=== PATIENT | female | born 1955 | race Caucasian/White ===

== ENCOUNTER → 2017-01-17 | Outpatient (CLI) | payer BC, OTHER ==
[~2017-01-17] VITALS: Ht 160 cm; Wt 91.2 kg
[~2017-01-17] MED LIST: ACHYD1T PO; ALLO300T2 PO; AMLO10TA2 PO; APIX5TAB PO; ASPI-586 PO; ATOR40TA70 PO; CALC-676 PO; CALC-823 PO; CATHETER FLUSH 10 ML SYR IV PRN; EZET10TA5 PO; FISH1CAP15 PC; HYDR-3874 PO; LISI1TAB6 PO; METO100T12 PO; MTP50T PO; MULT-10 PO; NIAC100045 PO; NITR-65 PO; NITR100C3 PO; POTA15TA PO; ROSU10TA PO; TAMS0.4C2 PO; TAMS0.4C98 PO; UBID100C17 PO; VIT-8 PO; VIT1CAPS5 PO; [UNRECOGNIZED DRUG - CODE] PO
[2017-01-17 09:02] VITALS: BP 114/77
[2017-01-17 09:08] VITALS: BP 161/90
[2017-01-17 09:11] VITALS: BP 174/82
[2017-01-17 09:15] VITALS: BP 160/101
--- NOTE | 2017-01-17 22:25 | STRESS TEST ---
DATE OF SERVICE: 01/17/2017 EXERCISE MYOVIEW STRESS TEST REPORT Baseline heart rate is 87. Baseline blood pressure 135/56. Baseline EKG is sinus rhythm with no ischemic changes. SUMMARY: The patient was injected with 10.80 mCi of technetium-99 Myoview and the resting images were obtained. Then, the patient started exercising with the baseline heart rate, blood pressure and EKG mentioned above. PVCs were noted during exercise, short runs of paroxysmal atrial tachycardia. The patient was able to exercise for a total of 5 minutes and 30 seconds on standard Lacho protocol, achieving a peak exercise level with the heart rate of 146, which is 92% of maximum expected heart rate. With peak exercise level, EKG was showing nondiagnostic changes. During recovery, heart rate and blood pressure returned to baseline. The resting and stress images were reviewed and compared in the short axis, horizontal long axis and vertical long axis views. Review of the images showed breast attenuation with decreased uptake at the mid to apical anterior wall and anterolateral wall with mild reversibility. SSS is 5. SDS 3. TID value 1.07. On the gated images, the left ventricle appeared to be normal size with normal contractility. Calculated ejection fraction 78%. CONCLUSION: 1. Good exercise tolerance, a total of 5 minutes and 30 seconds on standard Lacho protocol, total of 7.1 METS achieving 92% of maximum expected heart rate. 2. Appropriate blood pressure response to exercise returned to baseline during recovery. 3. Occasional premature ventricular contractions and paroxysmal atrial tachycardia noted at peak exercise level, resolved during recovery. 4. Nondiagnostic EKG changes with exercise returned to baseline during recovery. 5. Breast attenuation with questionable mild ischemia involving the mid to apical anterior wall, anterolateral wall and inferolateral wall. 6. Normal left ventricular size with normal contractility. Calculated ejection fraction 78%. Job ID: [id number] DocumentID: [id number] Dictated Date: 01/17/2017 15:58:36 Show Operations Supervisor Date: 01/17/2017 19:11:37 Dictated By: BLANCA CARBAJAL MD
== END ==
LOC: CARD 06:52
PROVIDERS: ATTEND Internal Medicine Cardiovascular Disease
DX: I25.10 Atherosclerotic heart disease of native coronary artery without angina pectoris (principal); I48.91 Unspecified atrial fibrillation; I10 Essential (primary) hypertension
CPT/HCPCS: 78452; 93017

== ENCOUNTER 2017-01-24 06:38 | Day surgery (SDC) | payer BC, OTHER ==
[~2017-01-24] VITALS: Ht 162.6 cm; Wt 91.6 kg
[2017-01-24] VITALS (11 sets, daily range): BP systolic 132–167; BP diastolic 56–96
[~2017-01-24 06:38] MED LIST changes: -CATHETER FLUSH 10 ML SYR IV PRN
[2017-01-24] MEDS ORDERED: NS IV 1000 ML 1,000 ML ONE (07:13)
[2017-01-24] MEDS ORDERED: HEParin (CATH LAB) 2,000 ML IV ONE (07:13)
[2017-01-24] MEDS ORDERED: LIDOCAINE 1% INJ 50 ML (XYLOCAINE) VIAL ONE (07:13)
[2017-01-24] MEDS ORDERED: NS IV 1000 ML 1,000 ML IV SCH ×2 (07:30→09:21)
[2017-01-24 07:38] LABS: RED BLOOD COUNT 4.92 10^6/uL (4.35-5.85); RED CELL DISTRIBUTION WIDTH 14.4 % (10.0-14.5); WHITE BLOOD COUNT 5.1 10^3/uL (4.3-11.0)
[2017-01-24 07:39] LABS: BILIRUBIN,URINE NEGATIVE (NEGATIVE); KETONES,URINE NEGATIVE (NEGATIVE); LEUKOCYTE ESTERASE ,URINE 1+ (NEGATIVE); NITRITE,URINE NEGATIVE (NEGATIVE); PH,URINE 6 (5-9); PROTEIN,URINE NEGATIVE (NEGATIVE); UROBILINOGEN,URINE NORMAL (NORMAL)
[2017-01-24] MEDS ORDERED: ASPI325T32 PO (07:41)
[2017-01-24 07:52] LABS: PROTHROMBIN TIME PATIENT 13.4 SEC (12.2-14.7)
[2017-01-24 07:55] LABS: ALANINE AMINOTRANSFERASE 32 U/L (0-55); ALBUMIN 4.3 GM/DL (3.2-4.5); ANION GAP 11 MMOL/L (5-14); ASPARTATE AMINO TRANSFERASE 25 U/L (5-34); BILIRUBIN,TOTAL 0.5 MG/DL (0.1-1.0); BLOOD UREA NITROGEN 21 MG/DL (7-18); BUN/CREATININE RATIO 24; CALCIUM 9.9 MG/DL (8.5-10.1); CARBON DIOXIDE 27 MMOL/L (21-32); CHLORIDE 102 MMOL/L (98-107); CHOLESTEROL 145 MG/DL (< 200); CREATININE SERUM 0.86 MG/DL (0.60-1.30); DIRECT LDL 74 MG/DL (1-129); GFR ESTIMATED > 60; GLUCOSE 95 MG/DL (70-105); POTASSIUM 3.9 MMOL/L (3.6-5.0); SODIUM 140 MMOL/L (135-145); TOTAL PROTEIN 7.7 GM/DL (6.4-8.2); TRIGLYCERIDES 108 MG/DL (<150); VLDL CHOLESTEROL 22 MG/DL (5-40)
--- NOTE | 2017-01-24 08:04 | Diagnostic Imaging Report ---
EXAMINATION: Portable upright radiograph of the chest. INDICATION: Abnormal stress test. Hypertension. FINDINGS: The lungs are hyperinflated with minimal left basilar atelectasis or scarring. The heart size is mildly enlarged. No effusion or pneumothorax. The mediastinum and [place] appear unremarkable. Sternotomy wires and post CABG changes are seen. IMPRESSION: Cardiomegaly. Minimal left basilar atelectasis or scarring. Dictated by: Dictated on workstation # [id number]
--- NOTE | 2017-01-24 08:14 | Cardiac Procedure Note-CS/ASA ---
Pre-Procedure Note Pre-Op Procedure Note H&P Reviewed The H&P was reviewed, patient examined and no changes noted. Date H&P Reviewed: Jan 24, 2017 Time H&P Reviewed: 08:14 Conscious Sedation Pre-Proced Time Reviewed: 08:14 ASA Class: 3 Airway Mallampati Classification: (lower [place] appropriate class) I. II. III, IV Lungs Heart ASA score ASA 1: a normal healthy patient ASA 2: a patient with a mild systemic disease (mid diabetes, controlled hypertension, obesity x ASA 3: a patient with a severe systemic disease that limits activity (angina , COPD, prior Myocardial infarction) ASA 4: a patient with an incapacitating disease that is a constant threat to life (CHF, renal failure) ASA 5: a moribund patient not expected to survive 24 hrs. (ruptured aneurysm) ASA 6: a declared brain patient whose organs are being harvested. For emergent operations, add the letter E after the classification Grade 3 Sedation Plan: Analgesia, Amnesia, Plan communicated to team members, Discussed options with patient/fam, Discussed risks with patient/fam Note The patient is an appropriate candidate to undergo the planned procedure, sedation, and anesthesia. The patient immediately re-assessed prior to indication. BLANCA CARBAJAL MD Jan 24, 2017 08:14
[2017-01-24] MEDS ORDERED: fentaNYL INJECTION 100 MCG/2 ML AMP ONE (08:32)
[2017-01-24] MEDS ORDERED: MIDAZOLAM 2 MG/2 ML (VERSED) VIAL ONE (08:32)
--- NOTE | 2017-01-24 09:20 | Cardiac Cath Report ---
Cardiac Cath Report Physician (s)/Mirror Maker (s) Physician BLANCA CARBAJAL MD Pre-Procedure Diagnosis Pre-Procedure Diagnosis: Coronary artery disease Post-Procedure Note Procedure Start Date: Jan 24, 2017 Name of Procedure: Left heart catheterization, vein graft angiogram, left ventricular pressure, [id number] Aortic arch angiogram [id number] Findings/Procedure Note PROCEDURE NOTE: After explaining the procedure to the patient, all pros and cons were explained, all questions were answered. The patient signed the consent and then she was placed on the cardiac catheterization laboratory. The patient was placed on the cardiac catheterization laboratory. Groin was prepped SL fashion local anesthesia was used. Sheath placed in the right femoral artery. Jeannie right and left catheter were used to access the coronary system, I used a JL 3.5 Taxus the left coronary system Vein Graft evaluated. Pigtail was used to to evaluate the aortic arch Left ventriculogram was not done, pressure was measured with crossing with the JR4 catheter Aortic arch angiogram was done At the end of the procedure the sheath was removed. Closure device was used FINDINGS: Hemodynamics LV 126/12 and diastolic pressure of 12 Aorta 120/52 mean of 76 ANATOMY: Left Main has severe ostial stenosis with severe disease distally Left Anterior Descending has severe disease, vein graft to the LAD is patent, there is 40-50 percent stenosis at the ostial vein graft nonobstructive disease , small vessel disease distally Left Circumflex has severe disease, vein graft to the obtuse marginal branch is patent with small vessel disease distally Right Coronory Artery is free of obstructive disease Vein Graft evaluation showed 2 vein grafts, vein graft to the LAD has 40-50 percent stenosis at its ostium, small vessel disease at the distal LAD, the second vein graft is to the circumflex artery/obtuse marginal branch which is patent with good flow distally LV Gram was not done, pressure was measured Aorta evaluation done with aortic arch angiogram showed normal aortic arch, no dissection or aneurysm, origin of the great neck vessels showed some tortuosity and calcification, no obstructive disease CONCLUSION: 1. Patent vein graft to the LAD with 40-50 percent stenosis at its ostium, small vessel disease at the distal LAD 2. Patent vein graft to the circumflex artery was small vessel disease at the distal circumflex artery 3. Mild disease in the right coronary artery 4. Normal aortic arch and great neck vessels, no dissection or aneurysm 5. Severe disease at the ostial left main corrected by the 2 bypasses DISCUSSION AND RECOMMENDATION: Continue to maximize medical therapy. No intervention is recommended Anesthesia Type: Conscious Sedation Estimated blood loss (mL): 15 ml Contrast Amount: 75 ml Total Radiation Dose: 398 mGy Post-Procedure Diagnosis Post-operative diagnosis: Chest pain nonspecific etiology Coronary artery disease Hypertension Hyperlipidemia BLANCA CARBAJAL MD Jan 24, 2017 09:20
--- NOTE | 2017-01-24 09:23 | Discharge Inst-Post CATH ---
Discharge Inst-CATH Post Cardiac Cath D/C Inst Follow Up/Plan Appointment with Dr. Villalobos's office in 2-4 weeks CARDIAC CATH DISCHARGE INSTRUCTIONS *Hold Metformin for 48 hours post heart cath. ACTIVITY * Go Home directly and rest. * Limit activity of the leg (or wrist if it was used) for 7 days including aerobics, swimming, jogging, bicycling, etc. * Restrict stair-climbing for 7 days if possible, if not, climb up with your non -cath leg, then bring together on the same step. * Avoid lifting, pushing, pulling or excessive movement of the affected extremity for 7 days. * Customary sexual activity may be resumed after 2 days-use caution not to use a position that strains or causes pain to the affected extremity. * No driving for 24 hours. * NO SMOKING. * Avoid straining for bowel movements for 7 days. * Gentle walking on level ground is allowed. * Returning to work will depend on the type of procedure and the results. Your doctor will discuss this with you. CALL YOUR DOCTOR FOR ANY OF THE FOLLOWING: *If bleeding from the puncture site occurs- Apply gentle pressure to site with clean cloth and call your doctor or EMS. * If a knot or lump forms under the skin, increases in size, or causes pain. * If bruising appears to be worsening or moving further down your leg instead of disappearing. * Temperature above 101 F. CARE OF YOUR GROIN INCISION; * Bruising or purple discoloration of the skin near the puncture site is common. * You may shower only, no bathtub bathing for 5 days. Be careful to avoid slipping as your leg may feel stiff. * If a closure device was used on your femoral artery, please see the attached guide regarding care of the device and your leg. * REMOVE the dressing from your groin the next day after your procedure in the shower. CARE OF YOUR WRIST INCISION; * Bruising or purple discoloration of the skin near the puncture site is common. * You may shower. * DO NOT submerge wrist. * Remove dressing in 24 hours. BLANCA VILLALOBOS MD Jan 24, 2017 09:22
[2017-01-24] MEDS ORDERED: PATIENT MAY USE OWN MEDS, ALL PO SCH (09:30)
== END 2017-01-24 14:13 | disposition home or self-care (01) ==
LOC: CATH 06:38 → SURG 09:31 → CATH 14:13
PROVIDERS: ATTEND Internal Medicine Cardiovascular Disease
DX: R07.89 Other chest pain (principal); I25.10 Atherosclerotic heart disease of native coronary artery without angina pectoris; I10 Essential (primary) hypertension; E78.2 Mixed hyperlipidemia; I48.0 Paroxysmal atrial fibrillation; I65.23 Occlusion and stenosis of bilateral carotid arteries; E66.9 Obesity, unspecified; Z68.34 Body mass index [BMI] 34.0-34.9, adult; Z82.49 Family history of ischemic heart disease and other diseases of the circulatory system; Z95.1 Presence of aortocoronary bypass graft; Z79.82 Long term (current) use of aspirin; Z79.899 Other long term (current) drug therapy; Z87.891 Personal history of nicotine dependence
CPT/HCPCS: 36221; 36415; 71010; 80053; 80061; 81000; 85027; 85610; 85730; 87081; 93459

== ENCOUNTER 2019-10-21 19:46 | Outpatient (CLI) | payer MEDICARE, OTHER ==
[~2019-10-21 19:46] MED LIST changes: -AMLO10TA2 PO; +AMLO10TA7 PO; +ASPI325T32 PO; +HYDR-3870 PO; -HYDR-3874 PO; +LISI1TAB29 PO; -ROSU10TA PO; +ROSU10TA22 PO; -TAMS0.4C98 PO; +TMSL.4C PO
== END 2019-10-22 07:00 | disposition home or self-care (01) ==
LOC: SLEEP 19:46
PROVIDERS: ATTEND Nurse Practitioner
DX: G47.33 Obstructive sleep apnea (adult) (pediatric) (principal); R09.02 Hypoxemia
CPT/HCPCS: 95811

== ENCOUNTER 2021-03-11 06:32 | Outpatient (CLI) | payer MEDICARE, OTHER ==
[~2021-03-11] VITALS: Ht 165.3 cm; Wt 90.0 kg
[~2021-03-11 06:32] MED LIST changes: +AMLO-251 PO; -AMLO10TA7 PO; -LISI1TAB29 PO; +LISI1TAB44 PO
== END 2021-03-11 16:56 | disposition home or self-care (01) ==
LOC: PREOP 06:32
PROVIDERS: ATTEND Specialist
DX: Z01.818 Encounter for other preprocedural examination (principal)

== ENCOUNTER 2021-03-14 09:49 | Day surgery (SDC) | payer MEDICARE, OTHER ==
[~2021-03-14] VITALS: Ht 165.3 cm; Wt 90.0 kg
[2021-03-14 10:19] VITALS: BP 131/60
[2021-03-14] MEDS: TETRACAINE 0.5% OPHTH SOLN 4 ML BTL (SINGLE DOSE ONLY) OU PRN ×4 (10:29→10:46)
[2021-03-14] MEDS ORDERED: MOXIFLOXACIN OPHTH SOLN 5 MG/ML 0.3 ML SYRINGE OP ONE (10:30)
[2021-03-14] MEDS ORDERED: POVIDONE (BETADINE) OPHTH SOLN 5% 30 ML OP ONE (10:30)
[2021-03-14] MEDS ORDERED: LIDOCAINE PF 1% 2 ML VIAL IR PRN (10:30)
[2021-03-14] MEDS ORDERED: TIMOLOL MALEATE 0.5% 5 ML (TIMOPTIC) BTL OU PRN (10:30)
[2021-03-14] MEDS: PHENYLEPHRINE 10% OPHTH (NEO-SYN) 5 ML BTL OU SCH ×3 (10:35→10:46)
[2021-03-14] MEDS: TROPICAMIDE 1% OPH SOLN (MYDRIACYL) 15 ML BTL OP SCH ×3 (10:35→10:46)
[2021-03-14] MEDS ORDERED: MIDAZOLAM 2 MG/2 ML (VERSED) VIAL ONE (11:06)
--- NOTE | 2021-03-14 11:14 | Ophthalmologist Pre-Op Note ---
Pre-Operative Progress Note H&P Reviewed The H&P was reviewed, patient examined and no changes noted. Date H&P Reviewed: Mar 14, 2021 Time H&P Reviewed: 11:14 Pre-Op Dx Cataract, Left Eye OMAIRA REID MD Mar 14, 2021 11:14
[2021-03-14] MEDS ORDERED: acetaZOLAMIDE ER 500 MG CAP (DIAMOX SEQUELS) PO ONE (11:30)
--- NOTE | 2021-03-14 11:35 | Ophthalmology Operative Report ---
Cataract removal/placement IOL PREOPERATIVE DIAGNOSIS: Cataract Left Eye POSTOPERATIVE DIAGNOSIS: Cataract Left Eye PROCEDURE: Cataract removal and placement of posterior chamber implant, left eye SURGEON: Thiago Reid ANESTHESIA: Topical with sedation COMPLICATIONS: None ESTIMATED BLOOD LOSS: Minimal DESCRIPTION OF PROCEDURE: After proper informed consent was obtained, the patient, a 65 female, was taken to the Operating Room and the left eye was anesthetized with tetracaine. The left eye was then prepped and draped in the usual manner. A wire lid speculum was placed. A paracentesis was made at the left hand position. Preservative free lidocaine was injected into the anterior chamber followed by viscoelastic. A clear corneal incision was made in the temporal position. A capsulorrhexis was preformed and the central nuclear and cortical material were removed. The posterior capsule was polished and an King 20.0 AU00T0 was placed into the capsular bag. The residual viscoelastic was aspirated and balanced saline solution was injected into the anterior chamber. Moxifloxacin was injected into the anterior chamber. The wound was checked and found to be water tight. The patient tolerated the procedure well without complications. THIAGO REID MD Mar 14, 2021 11:35
[2021-03-14 11:38] VITALS: BP 134/72
--- NOTE | 2021-03-14 13:03 | Anesthesia-General Post-Op ---
MAC Patient Condition Mental Status/LOC: Same as Preop Cardiovascular: Satisfactory Nausea/Vomiting: Absent Respiratory: Satisfactory Pain: Controlled Complications: Absent Post Op Complications Complications None Follow Up Care/Instructions Patient Instructions None needed. Anesthesiology Discharge Order Discharge Order Patient was doing well after the procedure, no complaints, stable vital signs, no apparent adverse anesthesia problems. TAMARA HART DO Mar 14, 2021 13:03
== END 2021-03-14 11:40 | disposition home or self-care (01) ==
LOC: SDC 09:49
PROVIDERS: ATTEND Specialist
DX: H25.12 Age-related nuclear cataract, left eye (principal); I25.119 Atherosclerotic heart disease of native coronary artery with unspecified angina pectoris; I11.9 Hypertensive heart disease without heart failure; E78.5 Hyperlipidemia, unspecified; E78.00 Pure hypercholesterolemia, unspecified; M19.90 Unspecified osteoarthritis, unspecified site; K21.9 Gastro-esophageal reflux disease without esophagitis; Z79.82 Long term (current) use of aspirin; Z79.899 Other long term (current) drug therapy; Z87.891 Personal history of nicotine dependence; Z95.1 Presence of aortocoronary bypass graft; Z90.710 Acquired absence of both cervix and uterus; Z82.49 Family history of ischemic heart disease and other diseases of the circulatory system; Z82.3 Family history of stroke
CPT/HCPCS: 66984; V2632

== ENCOUNTER 2021-03-18 10:05 | Day surgery (SDC) | payer MEDICARE, OTHER ==
[~2021-03-18] VITALS: Ht 165.3 cm; Wt 90.0 kg
[2021-03-18] MEDS ORDERED: TIMOLOL MALEATE 0.5% 5 ML (TIMOPTIC) BTL OU PRN (10:15)
[2021-03-18] MEDS ORDERED: MOXIFLOXACIN OPHTH SOLN 5 MG/ML 0.3 ML SYRINGE OP ONE (10:15)
[2021-03-18] MEDS ORDERED: POVIDONE (BETADINE) OPHTH SOLN 5% 30 ML OP ONE (10:15)
[2021-03-18] MEDS ORDERED: LIDOCAINE PF 1% 2 ML VIAL IR PRN (10:15)
[2021-03-18] MEDS: TETRACAINE 0.5% OPHTH SOLN 4 ML BTL (SINGLE DOSE ONLY) OU PRN ×4 (10:17→10:33)
[2021-03-18] MEDS: PHENYLEPHRINE 10% OPHTH (NEO-SYN) 5 ML BTL OU SCH ×3 (10:23→10:33)
[2021-03-18] MEDS: TROPICAMIDE 1% OPH SOLN (MYDRIACYL) 15 ML BTL OP SCH ×3 (10:23→10:33)
[2021-03-18 10:27] VITALS: BP 130/58
[2021-03-18] MEDS ORDERED: MIDAZOLAM 2 MG/2 ML (VERSED) VIAL ONE (10:53)
--- NOTE | 2021-03-18 11:03 | Ophthalmologist Pre-Op Note ---
Pre-Operative Progress Note H&P Reviewed The H&P was reviewed, patient examined and no changes noted. Date H&P Reviewed: Mar 18, 2021 Time H&P Reviewed: 11:03 Pre-Op Dx Cataract, Right Eye OMAIRA REID MD Mar 18, 2021 11:03
--- NOTE | 2021-03-18 11:29 | Ophthalmology Operative Report ---
Cataract removal/placement IOL PREOPERATIVE DIAGNOSIS: Cataract Right Eye POSTOPERATIVE DIAGNOSIS: Cataract Right Eye PROCEDURE: Cataract removal and placement of posterior chamber implant, right eye SURGEON: Thiago Reid ANESTHESIA: Topical with sedation COMPLICATIONS: None ESTIMATED BLOOD LOSS: Minimal DESCRIPTION OF PROCEDURE: After proper informed consent was obtained, the patient, a 65 female, was taken to the Operating Room and the right eye was anesthetized with tetracaine. The right eye was then prepped and draped in the usual manner. A wire lid speculum was placed. A paracentesis was made at the left hand position. Preservative free lidocaine was injected into the anterior chamber followed by viscoelastic. A clear corneal incision was made in the temporal position. A capsulorrhexis was preformed and the central nuclear and cortical material were removed. The posterior capsule was polished and King 20.5 AU00T0 IOL was placed into the capsular bag. The residual viscoelastic was aspirated and balanced saline solution was injected into the anterior chamber. Moxifloxacin was injected into the anterior chamber. The wound was checked and found to be water tight. The patient tolerated the procedure well without complications. THIAGO REID MD Mar 18, 2021 11:29
[2021-03-18 11:32] VITALS: BP 129/60
[2021-03-18] MEDS ORDERED: acetaZOLAMIDE ER 500 MG CAP (DIAMOX SEQUELS) PO ONE (11:45)
--- NOTE | 2021-03-18 12:29 | Anesthesia-General Post-Op ---
MAC Patient Condition Mental Status/LOC: Same as Preop Cardiovascular: Satisfactory Nausea/Vomiting: Absent Respiratory: Satisfactory Pain: Controlled Complications: Absent Post Op Complications Complications None Follow Up Care/Instructions Patient Instructions None needed. Anesthesiology Discharge Order Discharge Order Patient is doing well, no complaints, stable vital signs, no apparent adverse anesthesia problems. No complications reported per nursing. MELODY FORBES CRNA Mar 18, 2021 12:29
== END 2021-03-18 11:35 ==
LOC: SDC 10:05
PROVIDERS: ATTEND Specialist
DX: H25.11 Age-related nuclear cataract, right eye (principal); I10 Essential (primary) hypertension; M19.90 Unspecified osteoarthritis, unspecified site; E78.00 Pure hypercholesterolemia, unspecified; Z79.82 Long term (current) use of aspirin; Z79.899 Other long term (current) drug therapy; Z87.891 Personal history of nicotine dependence
CPT/HCPCS: 66984; V2632

== ENCOUNTER → 2021-06-02 | Outpatient (CLI) | payer MEDICARE, OTHER | LOC: CARD 12:23 | PROVIDERS: ATTEND Physician Assistant | DX: I08.3 Combined rheumatic disorders of mitral, aortic and tricuspid valves (principal); I10 Essential (primary) hypertension | CPT/HCPCS: 93306 ==

== ENCOUNTER → 2021-07-04 | Outpatient (CLI) | payer MEDICARE, OTHER ==
[~2021-07-04] MED LIST changes: +CATHETER FLUSH 10 ML SYR IVP SCH; +REGADENOSON 0.4 MG/5 ML SYR (LEXISCAN) IV ONE
[2021-07-04 08:58] VITALS: BP 163/102
--- NOTE | 2021-07-04 11:58 | Cardiology Stress Test Report ---
Stress Test Report Date of Procedure/Referring: Date of Procedure: July 04, 2021 PCP Victorino Mckay MD Admitting Physician Admitting Physician: Attending Physician: Karime Huggins Indications: atrial fibrillation Baseline Heart Rate: 75 Baseline Blood Pressure: Blood Pressure Systolic: 163 Blood Pressure Diastolic: 102 Baseline Vitals Vital Signs Date Time Temp Pulse Resp B/P (MAP) Pulse Ox O2 Delivery O2 Flow Rate FiO2 07/04/21 08:58 75 163/102 (122) 97 Baseline EKG: Baseline EKG: A fib Summary After explaining the procedure to the patient, she signed a consent and then brought to the stress nuclear laboratory. Patient received 0.4 mg Lexiscan for stress test, ECG, heart rate and blood pres sure were monitored continuously. Resting and stress dose of radio tracer were injected, imaging was acquired and reviewed in short axis, horizontal long axis and vertical long axis views. TID: 1.04 SSS: 5 SDS: 2 EF: 71 1. Patient tolerated Lexiscan well 2. Baseline atrial fibrillation persisted during test 3. Baseline hypertension persisted during test 4. Breast attenuation with typical female pattern with no significant ischemia or infarction on SPECT images 5. Normal left ventricular size, EF 71%, gated images are unreliable due to underlying atrial fibrillation BLANCA CARBAJAL MD July 04, 2021 11:58
== END ==
LOC: CARD 07:11
PROVIDERS: ATTEND Physician Assistant
DX: I48.91 Unspecified atrial fibrillation (principal); I25.10 Atherosclerotic heart disease of native coronary artery without angina pectoris
CPT/HCPCS: 78452; 93017; A9502

== ENCOUNTER 2021-07-13 08:35 | Day surgery (SDC) | payer MEDICARE, OTHER ==
[2021-07-13] VITALS (14 sets, daily range): BP systolic 96–133; BP diastolic 45–88
[2021-07-13 07:43] LABS: HEMOGLOBIN 13.8 g/dL (11.5-16.0)
[2021-07-13 07:44] LABS: BILIRUBIN,URINE NEGATIVE (NEGATIVE); CLARITY,URINE CLEAR; COLOR,URINE YELLOW; GLUCOSE, URINE (UA) NEGATIVE (NEGATIVE); KETONES,URINE NEGATIVE (NEGATIVE); LEUKOCYTE ESTERASE ,URINE TRACE (NEGATIVE); NITRITE,URINE NEGATIVE (NEGATIVE); PROTEIN,URINE NEGATIVE (NEGATIVE)
[2021-07-13 07:45] LABS: MEAN PLATELET VOLUME 11.2 fL (9.0-12.2); WHITE BLOOD COUNT 4.7 10^3/uL (4.3-11.0)
--- NOTE | 2021-07-13 07:49 | Diagnostic Imaging Report ---
INDICATION: Cardiac dysrhythmia. Single AP view of the chest is obtained with comparison made to study of 01/24/2017 FINDINGS: Heart size and pulmonary vascularity are within normal limits, and the lungs are clear, bilaterally. IMPRESSION: Unremarkable chest. Dictated by: Dictated on workstation # [id number]
[2021-07-13 07:51] LABS: BACTERIA,URINE LARGE /HPF
[2021-07-13 07:53] LABS: ALBUMIN 4.1 GM/DL (3.2-4.5); POTASSIUM 4.1 MMOL/L (3.6-5.0)
[2021-07-13 07:54] LABS: CALCIUM 9.6 MG/DL (8.5-10.1); INR 2.1 (0.8-1.4); PROTHROMBIN TIME PATIENT 24.1 SEC (12.2-14.7)
[2021-07-13 07:55] LABS: TOTAL PROTEIN 7.1 GM/DL (6.4-8.2)
[2021-07-13 07:57] LABS: BILIRUBIN,TOTAL 0.8 MG/DL (0.1-1.0)
[2021-07-13 07:59] LABS: CREATININE SERUM 1.13 MG/DL (0.60-1.30)
--- NOTE | 2021-07-13 08:26 | Conscious Sedation/ASA ---
Conscious Sedation Pre-Proced Time 08:26 ASA Score 3 For ASA 3 and 4: Consider anesthesia and medical clearance. Also, for patients with a history of failed moderate sedation consider anesthesia. Airway Lungs Heart ASA score ASA 1: a normal healthy patient ASA 2: a patient with a mild systemic disease (mid diabetes, controlled hypertension, obesity x ASA 3: a patient with a severe systemic disease that limits activity (angina, COPD, prior Myocardial infarction) ASA 4: a patient with an incapacitating disease that is a constant threat to life (CHF, renal failure) ASA 5: a moribund patient not expected to survive 24 hrs. (ruptured aneurysm) ASA 6: a declared brain- patient whose organs are being harvested. For emergent operations, add the letter E after the classification Mallampati Classification Grade 3 Sedation Plan Analgesia, Amnesia, Plan communicated to team members, Discussed options with patient/fam, Discussed risks with patient/fam The patient is an appropriate candidate to undergo the planned procedure, sedation, and anesthesia. The patient immediately re-assessed prior to indication. BLANCA CARBAJAL MD Jul 13, 2021 08:26
[~2021-07-13 08:35] MED LIST changes: +AMIODARONE FOR BOLUS 150 MG in NS (IVPB) 100 ML IV ONE; -CATHETER FLUSH 10 ML SYR IVP SCH; +LIDOCAINE 2% VISCOUS 15 ML UDC ONE; +LIDOCAINE 2% VISCOUS 15 ML UDC PO ONE; +LISI1TAB48 PO; +NS IV 1000 ML 1,000 ML IV SCH; -REGADENOSON 0.4 MG/5 ML SYR (LEXISCAN) IV ONE; +RIVA20TA2 PO; +proPOfol 200 MG/20 ML (DIPRIVAN) VIAL IV ONE
--- NOTE | 2021-07-13 08:40 | Cardioversion ---
Cardioversion PROCEDURE PHYSICIAN: Blanca Villalobos DATE OF PROCEDURE: 07/13/21 DIRECT EXTERNAL ELECTRICAL CARDIOVERSION: Indications: Atrial flutter Preoperative diagnoses: Atrial flutter Postoperative diagnosis: Sinus rhythm, Successful Electrical Cardioversion History: Anesthesia: By Anesthesia services Complications: None Specimen: None Contrast: 0 Flouroscopy: none Procedure Details: The patient was brought the photo lab technician after informed consent was taken, all the risks and complications were explained including the risk of stroke. Electrical cardioversion was carried out with anesthesia support with propofol. 200 joules of synchronized shock was delivered through external patches, the first 2 shock s were not successful in maintaining sinus rhythm, after the third shock she maintained sinus rhythm. The patient tolerated the procedure well. Conclusions: Successful electrical cardioversion in terminating atrial flutter Final Diagnosis: Paroxysmal atrial flutter Palpitation Hypertension Hyperlipidemia BLANCA VILLALOBOS MD Jul 13, 2021 08:40
--- NOTE | 2021-07-13 08:42 | Discharge Inst-Post CATH ---
Discharge Inst-CATH/EP Problems Reviewed?: Yes Post Cardiac Cath/EP D/C Inst Follow Up/Plan Appointment with Dr. Villalobos's office in 2 to 4 weeks <b>CARDIAC CATH/EP PROCEDURE DISCHARGE INSTRUCTIONS</b> ACTIVITY * Go Home directly and rest. * Limit activity of the leg (or wrist if it was used) for 7 days including aer obics, swimming, jogging, bicycling, etc. * Restrict stair-climbing for 7 days if possible, if not, climb up with your non-cath leg, then bring together on the same step. * Avoid lifting, pushing, pulling or excessive movement of the affected extremi ty for 7 days. * Customary sexual activity may be resumed after 2 days-use caution not to use a position that strains or causes pain to the affected extremity. * No driving for 24 hours. * NO SMOKING. * Avoid straining for bowel movements for 7 days. * Gentle walking on level ground is allowed. * Returning to work will depend on the type of procedure and the results. Your doctor will discuss this with you. CALL YOUR DOCTOR FOR ANY OF THE FOLLOWING: *If bleeding from the puncture site occurs- Apply gentle pressure to site with clean cloth and call your doctor or EMS. * If a knot or lump forms under the skin, increases in size, or causes pain. * If bruising appears to be worsening or moving further down your leg instead of disappearing. * Temperature above 101 F. CARE OF YOUR GROIN INCISION; * Bruising or purple discoloration of the skin near the puncture site is common. * You may shower only, no bathtub bathing for 5 days. Be careful to avoid slipping as your leg may feel stiff. * If a closure device was used on your femoral artery, please see the attached guide regarding care of the device and your leg. * Leave dressing on FOR 24 hours. CARE OF YOUR WRIST INCISION; * Bruising or purple discoloration of the skin near the puncture site is common. * You may shower. * DO NOT submerge wrist. * Leave dressing on FOR 24 hours. BLANCA VILLALOBOS MD Jul 13, 2021 08:42
[2021-07-13] MEDS ORDERED: AMIO200T65 PO (08:44)
[2021-07-13] MEDS ORDERED: DRONEDARONE 400 MG TABLET PO SCH (09:00)
[2021-07-13] MEDS ORDERED: NS IV 1000 ML 1,000 ML IV ONE (09:30)
== END 2021-07-13 11:18 ==
LOC: CATH 08:35 → SDC 09:29 → CATH 11:18
PROVIDERS: ATTEND Internal Medicine Cardiovascular Disease
DX: I48.92 Unspecified atrial flutter (principal); I48.0 Paroxysmal atrial fibrillation; I10 Essential (primary) hypertension; I25.10 Atherosclerotic heart disease of native coronary artery without angina pectoris; I65.23 Occlusion and stenosis of bilateral carotid arteries; G47.33 Obstructive sleep apnea (adult) (pediatric); E78.5 Hyperlipidemia, unspecified; E78.2 Mixed hyperlipidemia; Z95.1 Presence of aortocoronary bypass graft; Z79.82 Long term (current) use of aspirin; Z90.49 Acquired absence of other specified parts of digestive tract; Z87.891 Personal history of nicotine dependence; Z90.710 Acquired absence of both cervix and uterus; Z99.89 Dependence on other enabling machines and devices
CPT/HCPCS: 36415; 71045; 80053; 81000; 85027; 85610; 85730; 87077; 87081; 87088; 92960; 93005; 93312

== ENCOUNTER → 2022-02-16 | Outpatient (CLI) | payer MEDICARE, OTHER ==
[~2022-02-16] MED LIST changes: +AMIO200T65 PO; -AMIODARONE FOR BOLUS 150 MG in NS (IVPB) 100 ML IV ONE; -LIDOCAINE 2% VISCOUS 15 ML UDC ONE; -LIDOCAINE 2% VISCOUS 15 ML UDC PO ONE; +NF-CRES10T PO; -NS IV 1000 ML 1,000 ML IV SCH; -ROSU10TA22 PO; -proPOfol 200 MG/20 ML (DIPRIVAN) VIAL IV ONE
--- NOTE | 2022-02-16 16:10 | Diagnostic Imaging Report ---
INDICATION: Thyroid nodule. COMPARISON: None. TECHNIQUE: Thyroid sonogram. FINDINGS: Both thyroid lobes demonstrate somewhat heterogeneous echotexture. There are no focal lesions seen. Color flow Doppler demonstrates normal and symmetric vascularity, bilaterally. The right lobe measures 5 x 2 x 1.4, the left lobe measures 5.3 x 2.3 x 1.6. The isthmus measures 4 mm. IMPRESSION: Somewhat heterogeneous thyroid echotexture, but no focal suspicious nodule or mass. Dictated by: Dictated on workstation # [id number]
== END ==
LOC: RAD 11:41
PROVIDERS: ATTEND Physician Assistant
DX: E03.9 Hypothyroidism, unspecified (principal); E04.1 Nontoxic single thyroid nodule
CPT/HCPCS: 76536

== ENCOUNTER → 2022-07-20 | Outpatient (CLI) | payer MEDICARE, OTHER ==
--- NOTE | 2022-07-20 13:34 | Diagnostic Imaging Report ---
Indication: Chest pain PA and lateral chest There are postoperative changes from CABG surgery. Heart size and pulmonary vascularity are normal. Lungs are clear. There are no effusions or pneumothoraces. IMPRESSION: No acute abnormalities in the chest. Dictated by: Dictated on workstation # [id number]
== END ==
LOC: RAD 13:16
PROVIDERS: ATTEND Physician Assistant
DX: R07.9 Chest pain, unspecified (principal); R06.09 Other forms of dyspnea
CPT/HCPCS: 71046

== ENCOUNTER 2022-08-02 06:41 | Day surgery (SDC) | payer MEDICARE, OTHER ==
[~2022-08-02] VITALS: Ht 160 cm; Wt 93.0 kg
[2022-08-02] VITALS (10 sets, daily range): BP systolic 114–157; BP diastolic 55–88
[2022-08-02] MEDS ORDERED: HEParin (CATH LAB) 2,000 ML IV ONE (07:04)
[2022-08-02] MEDS ORDERED: LIDOCAINE 1% INJ 20 ML VIAL ONE (07:04)
[2022-08-02] MEDS ORDERED: NS IV 1000 ML 1,000 ML ONE (07:04)
[2022-08-02] MEDS ORDERED: NS IV 1000 ML 1,000 ML IV SCH ×2 (07:15→09:45)
[2022-08-02 07:38] LABS: BILIRUBIN,URINE NEGATIVE (NEGATIVE); CLARITY,URINE SL CLOUDY; COLOR,URINE YELLOW; GLUCOSE, URINE (UA) NEGATIVE (NEGATIVE); KETONES,URINE NEGATIVE (NEGATIVE); LEUKOCYTE ESTERASE ,URINE NEGATIVE (NEGATIVE); NITRITE,URINE NEGATIVE (NEGATIVE); PROTEIN,URINE 1+ (NEGATIVE)
[2022-08-02 07:41] LABS: HEMATOCRIT 39 % (35-52); HEMOGLOBIN 12.3 g/dL (11.5-16.0); MEAN CORPUSCULAR HEMOGLOBIN 30 pg (25-34); MEAN CORPUSCULAR HGB CONC 31 g/dL (32-36); MEAN CORPUSCULAR VOLUME 96 fL (80-99); PLATELET COUNT 144 10^3/uL (130-400); WHITE BLOOD COUNT 4.9 10^3/uL (4.3-11.0)
[2022-08-02] MEDS ORDERED: MIDAZOLAM 5 MG/5 ML (VERSED) VIAL ONE (07:52)
[2022-08-02] MEDS ORDERED: fentaNYL INJ 100 MCG/2 ML AMP ONE (07:52)
[2022-08-02 07:56] LABS: INR 1.7 (0.8-1.4); PROTHROMBIN TIME PATIENT 20.2 SEC (12.2-14.7)
[2022-08-02 08:01] LABS: WBC,URINE 0-2 /HPF
[2022-08-02 08:01] LABS: ALBUMIN 3.9 GM/DL (3.2-4.5); POTASSIUM 4.3 MMOL/L (3.6-5.0)
[2022-08-02 08:02] LABS: BACTERIA,URINE MODERATE /HPF
[2022-08-02 08:02] LABS: CALCIUM 9.2 MG/DL (8.5-10.1)
[2022-08-02 08:04] LABS: TOTAL PROTEIN 7.1 GM/DL (6.4-8.2)
[2022-08-02 08:05] LABS: BILIRUBIN,TOTAL 0.7 MG/DL (0.1-1.0)
[2022-08-02 08:07] LABS: CREATININE SERUM 1.36 MG/DL (0.60-1.30)
[2022-08-02] MEDS ORDERED: DULO30CA49 PO (08:11)
[2022-08-02] MEDS ORDERED: HYDR-700 PO (08:11)
[2022-08-02] MEDS ORDERED: DOCU-164 PO (08:11)
[2022-08-02] MEDS ORDERED: PANT40TA52 PO (08:11)
[2022-08-02] MEDS ORDERED: DULA1.5P2 SQ (08:11)
[2022-08-02] MEDS ORDERED: POLY1DRO OP (08:11)
[2022-08-02] MEDS ORDERED: AMIO200T65 PO (08:11)
[2022-08-02] MEDS ORDERED: EVOL140P3 SQ (08:11)
[2022-08-02] MEDS ORDERED: CALC-140 PO (08:11)
[2022-08-02] MEDS ORDERED: EMPA10TA PO (08:11)
[2022-08-02] MEDS ORDERED: DULO60CA59 PO (08:11)
[2022-08-02] MEDS ORDERED: LEVO150C4 PO (08:11)
[2022-08-02] MEDS ORDERED: POTA10CA44 PO (08:11)
[2022-08-02] MEDS ORDERED: GLIP10TA24 PO (08:11)
[2022-08-02] MEDS ORDERED: FURO40TA4 PO (08:11)
[2022-08-02] MEDS ORDERED: MENT118G TP (08:11)
[2022-08-02] MEDS ORDERED: CLOP75TA28 PO (08:11)
[2022-08-02] MEDS ORDERED: UBID100C17 PO (08:26)
[2022-08-02] MEDS ORDERED: LEVO100C4 PO (08:26)
[2022-08-02] MEDS ORDERED: OMEG100032 PO (08:26)
[2022-08-02] MEDS ORDERED: ALLO300T2 PO (08:26)
[2022-08-02] MEDS ORDERED: ROSU10TA28 PO (08:26)
[2022-08-02] MEDS ORDERED: MONT-40 PO (08:26)
[2022-08-02] MEDS ORDERED: MAGN400T39 PO (08:26)
[2022-08-02] MEDS ORDERED: ACET-2650 PO (08:26)
[2022-08-02] MEDS ORDERED: RIVA20TA PO (08:26)
[2022-08-02] MEDS ORDERED: LISI1TAB48 PO (08:26)
[2022-08-02] MEDS ORDERED: VIT1CAPS44 PO (08:26)
[2022-08-02] MEDS ORDERED: CARB-213 OP (08:26)
[2022-08-02] MEDS ORDERED: METO100T12 PO (08:26)
[2022-08-02] MEDS ORDERED: POTA15TA26 PO (08:26)
--- NOTE | 2022-08-02 08:48 | Cardiac Procedure Note-CS/ASA ---
Pre-Procedure Note Pre-Op Procedure Note Date of Available H&P: Jul 24, 2022 Date H&P Reviewed: Aug 02, 2022 Time H&P Reviewed: 08:48 History & Physical: H&P Reviewed, Patient Examed, No changes noted Pre-Operative Diagnosis: Coronary artery disease Moderate Sedation PreProcedure Time 08:48 ASA Score 3 Airway Lungs Heart ASA score ASA 1: a normal healthy patient ASA 2: a patient with a mild systemic disease (mid diabetes, controlled hypertension, obesity ASA 3: a patient with a severe systemic disease that limits activity (angina, COPD, prior Myocardial infarction) ASA 4: a patient with an incapacitating disease that is a constant threat to life (CHF, renal failure) ASA 5: a moribund patient not expected to survive 24 hrs. (ruptured aneurysm) ASA 6: a declared brain- patient whose organs are being harvested. For emergent operations, add the letter E after the classification Mallampati Classification Grade 3 Sedation Plan Analgesia, Amnesia, Plan communicated to team members, Discussed options with patient/fam, Discussed risks with patient/fam The patient is an appropriate candidate to undergo the planned procedure, sedation, and anesthesia. The patient immediately re-assessed prior to indication. BLANCA CARBAJAL MD Aug 02, 2022 08:48
[2022-08-02] MEDS ORDERED: PATIENT MAY USE OWN MEDS, ALL PO SCH (09:45)
--- NOTE | 2022-08-02 09:47 | Discharge Inst-Post CATH ---
Discharge Inst-CATH/EP Problems Reviewed?: Yes Post Cardiac Cath/EP D/C Inst Follow Up/Plan Appointment with Dr. Villalobos's office in 2 to 4 weeks <b>CARDIAC CATH/EP PROCEDURE DISCHARGE INSTRUCTIONS</b> ACTIVITY * Go Home directly and rest. * Limit activity of the leg (or wrist if it was used) for 7 days including aer obics, swimming, jogging, bicycling, etc. * Restrict stair-climbing for 7 days if possible, if not, climb up with your non-cath leg, then bring together on the same step. * Avoid lifting, pushing, pulling or excessive movement of the affected extremi ty for 7 days. * Customary sexual activity may be resumed after 2 days-use caution not to use a position that strains or causes pain to the affected extremity. * No driving for 24 hours. * NO SMOKING. * Avoid straining for bowel movements for 7 days. * Gentle walking on level ground is allowed. * Returning to work will depend on the type of procedure and the results. Your doctor will discuss this with you. CALL YOUR DOCTOR FOR ANY OF THE FOLLOWING: *If bleeding from the puncture site occurs- Apply gentle pressure to site with clean cloth and call your doctor or EMS. * If a knot or lump forms under the skin, increases in size, or causes pain. * If bruising appears to be worsening or moving further down your leg instead of disappearing. * Temperature above 101 F. CARE OF YOUR GROIN INCISION; * Bruising or purple discoloration of the skin near the puncture site is common. * You may shower only, no bathtub bathing for 5 days. Be careful to avoid slipping as your leg may feel stiff. * If a closure device was used on your femoral artery, please see the attached guide regarding care of the device and your leg. * Leave dressing on FOR 24 hours. CARE OF YOUR WRIST INCISION; * Bruising or purple discoloration of the skin near the puncture site is common. * You may shower. * DO NOT submerge wrist. * Leave dressing on FOR 24 hours. BLANCA VILLALOBOS MD Aug 02, 2022 09:47
--- NOTE | 2022-08-02 09:50 | Cardiac Cath Report ---
Cardiac Cath Report Physician (s)/Collator Hand (s) Physician BLANCA CARBAJAL MD Pre-Procedure Diagnosis Pre-Procedure Diagnosis: Coronary artery disease Post-Procedure Note Procedure Start Date: Aug 02, 2022 Name of Procedure: Left heart catheterization Vein graft angiogram Findings/Procedure Note PROCEDURE NOTE: 67-year-old lady with history of coronary artery disease, CABG x2, has been having increasing dyspnea on exertion, becoming more accelerating symptoms suggestive of accelerating angina, cardiac catheterization was advised After explaining the procedure to the patient, all pros and cons were explained, all questions were answered. The patient signed the consent and then she was placed on the cardiac catheterization laboratory. Groin was prepped SL fashion local anesthesia was used. Sheath placed in the right femoral artery. Jeannie right and left catheter were used to access the coronary system.Vein Graft evaluated. Jeannie right was prolapsed to the left ventricular cavity Left ventriculogram was not done, pressure was measured At the end of the procedure the sheath was removed. Closure device was deployed FINDINGS: Hemodynamics LV 143/25, end-diastolic pressure of 25 Aorta 147/65 mean of 96 ANATOMY: Left Main has severe stenosis proximally, very small artery Left Anterior Descending has severe diffuse disease, vein graft to the mid LAD is patent with good flow distally overall the LAD is a very small artery Left Circumflex is a very small artery, the vein graft to the obtuse marginal branch is patent with small vessel disease distally Right Coronary Artery is large dominant artery with no obstructive disease Vein Graft evaluation showed 2 markers The lower marker is a vein graft to the obtuse marginal branch, patent bypass with small vessel disease in the [place] obtuse marginal The pattern marker is a vein graft to the mid LAD that is patent with good flow in the LAD, small vessel disease distally the artery is very small LV Gram was not done, pressure was measured CONCLUSION: Patent vein graft to the LAD and vein graft to the obtuse marginal branch, small vessel disease distally nonobstructive disease Dominant right coronary artery with no obstructive disease Moderately elevated left ventricular end-diastolic pressure DISCUSSION AND RECOMMENDATION: Continue maximizing medical therapy. Adding diuretics and evaluate tolerance and response Anesthesia Type: Conscious Sedation Estimated blood loss (mL): 20 ml Contrast Amount: 27 ml Post-Procedure Diagnosis Post-operative diagnosis: Shortness of breath Coronary artery disease Hypertension Hyperlipidemia BLANCA CARBAJAL MD Aug 02, 2022 09:50
[2022-08-02] MEDS ORDERED: POTA10TA PO (09:55)
[2022-08-02] MEDS ORDERED: FURO-125 PO (09:55)
[2022-08-02] MEDS ORDERED: HYDROcodone/APAP 5 MG/325 MG (LORTAB) TAB ONE (11:06)
[2022-08-02] MEDS ORDERED: HYDROcodone/APAP 5 MG/325 MG (LORTAB) TAB PO ONE (11:15)
== END 2022-08-02 14:34 | disposition home or self-care (01) ==
LOC: CATH 06:41 → SDC 10:11 → CATH 14:34
PROVIDERS: ATTEND Internal Medicine Cardiovascular Disease
DX: I25.10 Atherosclerotic heart disease of native coronary artery without angina pectoris (principal); I10 Essential (primary) hypertension; E78.2 Mixed hyperlipidemia; R06.02 Shortness of breath; E66.9 Obesity, unspecified; I48.0 Paroxysmal atrial fibrillation; E03.9 Hypothyroidism, unspecified; I44.0 Atrioventricular block, first degree; I65.23 Occlusion and stenosis of bilateral carotid arteries; G47.33 Obstructive sleep apnea (adult) (pediatric); Z87.891 Personal history of nicotine dependence; Z95.1 Presence of aortocoronary bypass graft; Z79.890 Hormone replacement therapy; Z79.899 Other long term (current) drug therapy; Z68.36 Body mass index [BMI] 36.0-36.9, adult
CPT/HCPCS: 80053; 80061; 81000; 85027; 85610; 85730; 87077; 87081; 87088; 93005; 93459; C1760; C1894; 36415

== ENCOUNTER 2022-11-18 07:13 | Observation (INO) | payer MEDICARE, OTHER ==
[~2022-11-18] VITALS: Ht 160 cm; Wt 93.0 kg
[~2022-11-18 07:13] MED LIST changes: +ACET-2650 PO; +CALC-140 PO; +CARB-213 OP; +CLOP75TA28 PO; +DOCU-164 PO; +DULA1.5P2 SQ; +DULO30CA49 PO; +DULO60CA59 PO; +EMPA10TA PO; +EVOL140P3 SQ; +FURO-125 PO; +FURO40TA4 PO; +GLIP10TA24 PO; +HYDR-700 PO; +LEVO100C4 PO; +LEVO150C4 PO; +MAGN400T39 PO; +MENT118G TP; +MONT-40 PO; +OMEG100032 PO; +PANT40TA52 PO; +POLY1DRO OP; +POTA-185 PO; +POTA10CA84 PO; +POTA15TA26 PO; +RIVA20TA PO; +ROSU10TA28 PO; +VIT1CAPS44 PO
--- NOTE | 2022-11-18 08:07 | ED General ---
General Chief Complaint: General Problems/Pain Stated Complaint: BLOOD IN STOOLS/SOA/NAUSEA/CHILLS/WEAKNESS Nursing Triage Note: PT TO RM 7 PER W/C PT CO OF SOA, INTERMITTENT C/P, [place], CHILLS, BLOOD IN STOOLS FOR FEW DAYS AND IS GETTING WEAK. PT CO OF NAUSEA THIS AM Source of Information: Patient Exam Limitations: No Limitations History of Present Illness Date Seen by Provider: Nov 18, 2022 Time Seen by Provider: 07:45 Initial Comments Patient is a 67-year-old female who presents to the emergency department with a chief complaint of shortness of breath with even minimal exertion, bloody stools over the last 2 to 3 days and some nausea this morning. She had an ablation for A-fib earlier in the year and ever since has been short of breath but it has gotten significantly worse in the last week especially the last 24 hours. She denies chest pain. She had no known fever until this morning. Is not currently nauseated but was earlier. Has not vomited. She states the bloody stools have progressed in severity over the last few days "straight blood" last night. No abdominal cramping. She has had previous colonoscopy in 2006 or 2007 and then again in 2012. She tells me she has known history of internal hemorrhoids. She is chronically anticoagulated still on Xarelto even after her ablation. History of coronary artery disease status post 2 vessel bypass in 1997. She wears CPAP at night. Does not require the use of home oxygen. Her room air sats were 85% on arrival. No productive cough. No sore throat or runny nose. No difficulties with urination. Dr Villalobos is her certified procedural coder. Chelsey Campbell NP Timing/Duration: 3-4 Days Severity: Severe Associated Systoms: Fever/Chills, Shortness of Air, Weakness, Other (bloody stools) Allergies and Home Medications Allergies Coded Allergies: codeine (Unverified Allergy, Unknown, 06/18/15) morphine (Unverified Allergy, Unknown, 06/18/15) Patient Home Medication List Home Medication List Reviewed: Yes Allopurinol (Allopurinol) 300 Mg Tablet, 300 MG PO HS, (Reported) Entered as Reported by: CHEYANNE WRIGHT on 08/02/22 0824 Last Action: Continued Furosemide (Furosemide) 20 Mg Tablet, 20 MG PO for Weight gain, (Reported) Entered as Reported by: Neha Peralta on 11/18/22 1443 Last Action: Continued Levothyroxine Sodium (Levothyroxine) 100 Mcg Capsule, 100 MCG PO DAILY, (Reported) Entered as Reported by: CHEYANNE WRIGHT on 08/02/22825 Last Action: Converted Lisinopril/Hydrochlorothiazide (Lisinopril-Hctz 20-25 mg Tab) 20 Mg-25 Mg Tablet, 1 EACH PO DAILY, (Reported) Entered as Reported by: CHEYANNE WRIGHT on 08/02/22825 Last Action: Converted Magnesium Oxide (Magnesium) 400 Mg Magnesium Tablet, 400 MG PO BID, (Reported) Entered as Reported by: CHEYANNE WRIGHT on 08/02/22825 Last Action: Reviewed Metoprolol Tartrate (Metoprolol Tartrate) 100 Mg Tablet, 100 MG PO BID, (Reported) Entered as Reported by: CHEYANNE WRIGHT on 08/02/22825 Last Action: Converted Montelukast Sodium (Montelukast Sodium) 10 Mg Tablet, 10 MG PO HS, (Reported) Entered as Reported by: CHEYANNE WRIGHT on 08/02/22825 Last Action: Reviewed Glynn-3/Dha/Epa/Fish Oil (Fish Oil 1,000 mg Softgel) 1,000 Mg (120 Mg-180 Mg) Capsule, 1,000 MG PO HS, (Reported) Entered as Reported by: CHEYANNE WRIGHT on 08/02/22825 Last Action: Reviewed Potassium Chloride (Potassium Chloride) 15 Meq Tab.er.prt, 15 MEQ PO BID, (Reported) Entered as Reported by: CHEYANNE WRIGHT on 08/02/22825 Last Action: Converted Rivaroxaban (Xarelto) 20 Mg Tablet, 20 MG PO 1800, (Reported) Entered as Reported by: CHEYANNE WRIGHT on 08/02/22825 Last Action: Continued Rosuvastatin Calcium (Rosuvastatin Calcium) 10 Mg Tablet, 10 MG PO Q48H, (Reported) Entered as Reported by: CHEYANNE WRIGHT on 08/02/22825 Last Action: Continued Ubidecarenone (Co Q-10) 200 Mg Capsule, 200 MG PO DAILY Prescribed by: ARNIE ONEILL on 11/18/22 8904 Last Action: Reviewed Vit C/E/Zn/Coppr/Lutein/Zeaxan (Preservision Areds 2 Softgel) 250MG-90MG Capsule, 1 EACH PO DAILY, (Reported) Entered as Reported by: CHEYANNE WRIGHT on 08/02/22825 Last Action: Reviewed Discontinued Medications Acetaminophen (Tylenol Arthritis) 650 Mg Tablet.er, 650 MG PO Q6H PRN for PAIN- MILD (1-4), (Reported) Discontinued Reason: No Longer Taking Entered as Reported by: CHEYANNE WRIGHT on 08/02/22825 Last Action: Discontinued Carboxymethylcellulose Sodium (Lubricant Eye) 0.5 % Drops, 1 DROP OP PRN PRN for DRY EYES, (Reported) Discontinued Reason: No Longer Taking Entered as Reported by: CHEYANNE WRIGHT on 08/02/22825 Last Action: Discontinued Furosemide (Lasix) 20 Mg Tablet, 20 MG PO DAILY Discontinued Reason: No Longer Taking Prescribed by: BLANCA VILLALOBOS on 08/02/22954 Last Action: Discontinued Potassium Chloride (K-Tab ER) 10 Meq Tablet.er, 10 MEQ PO DAILY Discontinued Reason: No Longer Taking Prescribed by: BLANCA VILLALOBOS on 08/02/22954 Last Action: Discontinued Ubidecarenone (Coq-10) 100 Mg Capsule, 100 MG PO HS, (Reported) Discontinued Reason: No Longer Taking Entered as Reported by: CHEYANNE WRIGHT on 08/02/22825 Last Action: Discontinued Review of Systems Review of Systems Constitutional: see HPI EENTM: no symptoms reported Respiratory: short of breath Cardiovascular: no symptoms reported Gastrointestinal: nausea (nausea this morning), other (bloody stool) Genitourinary: no symptoms reported Musculoskeletal: no symptoms reported Skin: no symptoms reported Psychiatric/Neurological: No Symptoms Reported All Other Systems Reviewed Negative Unless Noted: Yes Past Dnuuceo-Nxsdag-Qzlyto Hx Patient Social History Tobacco Use?: No Substance use?: No Alcohol Use?: No Pt feels they are or have been: No Immunizations Up To Date First/Initial COVID19 Vaccinat: YES Second COVID19 Vaccination Saravanan: YES Third COVID19 Vaccination Date: YES Past Medical History Surgery/Hospitalization HX: BYPASS, ,GB, FOOT SURG, HTN, A-FIB, ABLATION, HEART CATH, LITHOTRIPSY, PLANTAR FACITIS, BLADDER TIE UP, CATERATCT SURG X2, Bladder Surgery, CABG, Gallbladder, Hysterectomy, Orthopedic Sleep Apnea Currently Using CPAP: Yes Atrial Fibrillation, Coronary Artery Disease, Hypertension Reproductive Disorders: No (HYSTERECTOMY) HIV/AIDS: No Kidney Stones Gastroesophageal Reflux Arthritis Loss of Vision: Bilateral Hearing Impairment: Denies Family Medical History Patient reports no known family medical history. Physical Exam-Suspected Sepsis Physical Exam Vital Signs Vital Signs - First Documented 11/18/22 07:22 Temp 37.3 Pulse 78 Resp 18 B/P (MAP) 161/72 (101) Pulse Ox 96 O2 Delivery Nasal Cannula Capillary Refill : Less Than 3 Seconds Blood Pressure Mean: 101 Height, Weight, BMI Height: 5'4.00" Weight: 202lbs. 0.0oz. 91.008806sx; 36.00 BMI Method: General Appearance: No Apparent Distress, WD/WN Eyes: Bilateral Eye Normal Inspection, Bilateral Eye PERRL, Bilateral Eye EOMI HEENT: PERRL/EOMI Neck: Normal Inspection Respiratory: Lungs Clear, Normal Breath Sounds, No Accessory Muscle Use, No Respiratory Distress Cardiovascular: Regular Rate, Rhythm, Systolic Murmur (?3/6 systolic murmur lusb; no gallop) Gastrointestinal: Non Tender, Soft, Other (protuberant) Extremity: Normal Capillary Refill, Normal Inspection, Normal Range of Motion, Non Tender, No Calf Tenderness, No Pedal Edema Neurologic/Psychiatric: Oriented x3, No Motor/Sensory Deficits, Normal Mood/Af fect, 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 as Tested Skin: normal color, warm/dry Focused Exam Lactate Level 11/18/22 07:50: Lactic Acid Level 1.27 Lactic Acid Level Progress/Results/Core Measures Suspected Sepsis SIRS Temperature: Pulse: 78 Respiratory Rate: 18 Laboratory Tests 11/18/22 07:30: White Blood Count 6.9 11/19/22 05:45: White Blood Count 4.4 Blood Pressure 161 /72 Mean: 101 11/18/22 07:50: Lactic Acid Level 1.27 Laboratory Tests 11/18/22 07:30: Creatinine 1.54H, INR Comment 4.8H, Platelet Count 127L, Total Bilirubin 0.9 11/19/22 05:45: Creatinine 1.26, Platelet Count 124L Results/Orders Lab Results Laboratory Tests Test 11/18/22 07:30 11/18/22 07:50 11/18/22 08:22 11/18/22 09:16 Range/Units White Blood Count 6.9 4.3-11.0 10^3/uL Red Blood Count 4.07 3.80-5.11 10^6/uL Hemoglobin 11.9 11.5-16.0 g/dL Hematocrit 38 35-52 % Mean Corpuscular Volume 92 80-99 fL Mean Corpuscular Hemoglobin 29 25-34 pg Mean Corpuscular Hemoglobin Concent 32 32-36 g/dL Red Cell Distribution Width 16.8 H 10.0-14.5 % Platelet Count 127 L 130-400 10^3/uL Mean Platelet Volume 11.7 9.0-12.2 fL Immature Granulocyte % (Auto) 0 % Neutrophils (%) (Auto) 78 H 42-75 % Lymphocytes (%) (Auto) 12 12-44 % Monocytes (%) (Auto) 8 0-12 % Eosinophils (%) (Auto) 2 0-10 % Basophils (%) (Auto) 0 0-10 % Neutrophils # (Auto) 5.4 1.8-7.8 10^3/uL Lymphocytes # (Auto) 0.8 L 1.0-4.0 10^3/uL Monocytes # (Auto) 0.5 0.0-1.0 10^3/uL Eosinophils # (Auto) 0.1 0.0-0.3 10^3/uL Basophils # (Auto) 0.0 0.0-0.1 10^3/uL Immature Granulocyte # (Auto) 0.0 0.0-0.1 10^3/uL Percent Immature Platelet Fraction 5.1 0.0-7.6 % Prothrombin Time 44.0 H 12.2-14.7 SEC INR Comment 4.8 H 0.8-1.4 Activated Partial Thromboplast Time 45 H 24-35 SEC Sodium Level 140 135-145 MMOL/L Potassium Level 4.1 3.6-5.0 MMOL/L Chloride Level 104 98-107 MMOL/L Carbon Dioxide Level 23 21-32 MMOL/L Anion Gap 13 5-14 MMOL/L Blood Urea Nitrogen 28 H 7-18 MG/DL Creatinine 1.54 H 0.60-1.30 MG/DL Estimat Glomerular Filtration Rate 37 BUN/Creatinine Ratio 18 Glucose Level 111 H 70-105 MG/DL Calcium Level 9.5 8.5-10.1 MG/DL Corrected Calcium 9.4 8.5-10.1 MG/DL Total Bilirubin 0.9 0.1-1.0 MG/DL Aspartate Amino Transf (AST/SGOT) 27 5-34 U/L Alanine Aminotransferase (ALT/SGPT) 21 0-55 U/L Alkaline Phosphatase 147 H 40-136 U/L B-Type Natriuretic Peptide 913.4 H <100.0 PG/ML Total Protein 7.8 6.4-8.2 GM/DL Albumin 4.1 3.2-4.5 GM/DL Thyroid Stimulating Hormone (TSH) 1.36 0.35-4.94 UIU/ML Smear Scan YES Lactic Acid Level 1.27 0.50-2.00 MMOL/L Urine Color YELLOW Urine Clarity CLEAR Urine pH 8.0 5-9 Urine Specific [place] 1.020 1.016-1.022 Urine Protein 2+ H NEGATIVE Urine Glucose (UA) NEGATIVE NEGATIVE Urine Ketones NEGATIVE NEGATIVE Urine Nitrite NEGATIVE NEGATIVE Urine Bilirubin NEGATIVE NEGATIVE Urine Urobilinogen 0.2 < = 1.0 MG/DL Urine Leukocyte Esterase 1+ H NEGATIVE Urine RBC (Auto) NEGATIVE NEGATIVE Urine RBC RARE /HPF Urine WBC 10-25 H /HPF Urine Squamous Epithelial Cells 2-5 /HPF Urine Crystals NONE /LPF Urine Bacteria TRACE /HPF Urine Casts NONE /LPF Urine Mucus NEGATIVE /LPF Urine Culture Indicated YES SARS-CoV-2 RNA (RT-PCR) Not Detected Not Detecte Test 11/19/22 05:45 Range/Units White Blood Count 4.4 4.3-11.0 10^3/uL Red Blood Count 3.59 L 3.80-5.11 10^6/uL Hemoglobin 10.3 L 11.5-16.0 g/dL Hematocrit 33 L 35-52 % Mean Corpuscular Volume 91 80-99 fL Mean Corpuscular Hemoglobin 29 25-34 pg Mean Corpuscular Hemoglobin Concent 32 32-36 g/dL Red Cell Distribution Width 16.7 H 10.0-14.5 % Platelet Count 124 L 130-400 10^3/uL Mean Platelet Volume 11.8 9.0-12.2 fL Immature Granulocyte % (Auto) 0 % Neutrophils (%) (Auto) 62 42-75 % Lymphocytes (%) (Auto) 24 12-44 % Monocytes (%) (Auto) 10 0-12 % Eosinophils (%) (Auto) 3 0-10 % Basophils (%) (Auto) 1 0-10 % Neutrophils # (Auto) 2.7 1.8-7.8 10^3/uL Lymphocytes # (Auto) 1.1 1.0-4.0 10^3/uL Monocytes # (Auto) 0.5 0.0-1.0 10^3/uL Eosinophils # (Auto) 0.1 0.0-0.3 10^3/uL Basophils # (Auto) 0.0 0.0-0.1 10^3/uL Immature Granulocyte # (Auto) 0.0 0.0-0.1 10^3/uL Sodium Level 139 135-145 MMOL/L Potassium Level 3.7 3.6-5.0 MMOL/L Chloride Level 106 98-107 MMOL/L Carbon Dioxide Level 20 L 21-32 MMOL/L Anion Gap 13 5-14 MMOL/L Blood Urea Nitrogen 28 H 7-18 MG/DL Creatinine 1.26 0.60-1.30 MG/DL Estimat Glomerular Filtration Rate 47 BUN/Creatinine Ratio 22 Glucose Level 90 70-105 MG/DL Calcium Level 8.8 8.5-10.1 MG/DL My Orders Orders - GEORGIA WILLOUGHBY MD O2 (11/18/22 07:57) Cbc And Automated Diff (11/18/22 08:04) Comprehensive Metabolic Panel (11/18/22 08:04) Blood Culture (11/18/22 08:04) Sputum Culture (11/18/22 08:04) Urinalysis (11/18/22 08:04) Urine Culture (11/18/22 08:04) Protime With Inr (11/18/22 08:04) Partial Thromboplastin Time (11/18/22 08:04) Chest 1 View, Ap/Pa Only (11/18/22 08:04) Ed Iv/Invasive Line Start (11/18/22 08:04) Ed Iv/Invasive Line Start (11/18/22 08:04) Vital Signs Adult Sepsis Patie Q15M (11/18/22 08:04) O2 (11/18/22 08:04) Remove Rings In Anticipation O (11/18/22 08:04) Lactic Acid Analyzer (11/18/22 08:04) Bnp [place] (11/18/22 08:04) Covid 19 Inhouse Test (11/18/22 09:11) Furosemide Injection (Furosemide Injec (11/18/22 11:00) Thyroid Stimulating Hormone (11/18/22 11:08) Iron Tibc %Sat & Ferritin (11/18/22 11:08) Ferritin (11/18/22 11:08) Vital Signs/I&O 11/18/22 11/18/22 11/18/22 11/18/22 19:00 19:57 20:20 23:04 Temp 36.6 36.7 Pulse 70 70 68 Resp 20 18 B/P (MAP) 133/63 (86) 123/57 (79) Pulse Ox 96 95 O2 Delivery Nasal Cannula Nasal Cannula NIV CPAP O2 Flow Rate 2.00 2.00 11/19/22 11/19/22 01:00 03:18 Temp 36.6 Pulse 65 68 Resp 16 B/P (MAP) 126/61 (82) Pulse Ox 93 O2 Delivery NIV CPAP Capillary Refill : Less Than 3 Seconds Blood Pressure Mean: 101 Progress Note : Time: 11:00 Progress Note Patient seen and evaluated by me. Evaluation today includes physical exam, "sepsis protocol" to include CBC, CMP, BNP, UA, Urine culture, blood culture with lactic acid, coags, single view CXR, covid test. Pertinent physical exam findings include WDWN female in NAD, satting 98% on 2L oxygen pernasal cannula. No increased work of breathing or distress. She has clear lungs without ronchi or rales. No LE edema. Heart is regular. She appears adequately hydrated. Normal mentation with focal neuro deficits. ddx includes pneumonia/covid, CHF, anemia, lower GIB Patient's labs independently reviewed and interpreted by me. Shehas a total WBC of 6.9 with Hgb 11.9 and Hct 38, normal platelets. normal CMP with elevated BUN at 25 and Creat 1.54. Glu is 111. Coags elevated consistent with xarelto use. UA has 10-25 WBC, 2+ protein and 1+ LE - as the patient is asymptomatic and afebrile with normal WBC, elect not to treat this at this time and will let the urine culture. her BNP is elevated at 913 - no previous for comparison. Her covid is negative and on my interpretation of CXR - she has no evidence of failure but the heart does seem enlarged on comparison to previous. No focal consolidative infiltrates. LActic is 1.27. I discussed the case with Dr Ospina, due to new oxygen requirement and dyspnea - will admit to the hospital. I added iron studies and Dr Ospina indicated he would like 20mg of Lasix given. Patient made aware of our plan of care and is agreeable. Diagnostic Imaging Diagonstic Imaging: Xray Plain Films/CT/US/NM/MRI: chest Comments [facility] [place], [place] NAME: MIREILLE MIRANDA [facility] REC#: [id number] PT STATUS: REG ER : 1955 PHYSICIAN: GEORGIA WILLOUGHBY MD ADMIT DATE: 11/18/22/ER Signed Date of Exam:11/18/22 CHEST 1 VIEW, AP/PA ONLY INDICATION: Shortness of breath; bloody stools TECHNIQUE: Single view chest 8:22 AM CORRELATION STUDY: 07/20/2022 FINDINGS: Postoperative sternotomy and coronary bypass. Heart size enlarged. Mediastinum and vasculature within normal. The lungs are clear with no consolidating infiltrate. There is no significant effusion or pneumothorax. IMPRESSION: 1. Negative appearing single view chest. Dictated by: Dictated on workstation # [id number] Dict: 11/18/22819 Trans: 11/18/22819 DO [id number] Interpreted by: CAMRON FALLON DO Electronically signed by: CAMRON FALLON DO 11/18/22819 Departure Communication (Admissions) Discussed with Dr Ospina - accepts patient for admission Impression Primary Impression: Hypoxia Additional Impressions: Hematochezia Acute kidney injury Disposition: ADMITTED INPATIENT Condition: Stable Admissions Decision to Admit Reason: Admit from ER (General) Decision to Admit/Date: Nov 18, 2022 Time/Decision to Admit Time: 10:00 Departure-Patient Inst. Referrals: MK HINOJOSA MD (PCP) Primary Care Physician JON CAMPBELL (Family) Primary Care Physician Scripts Ubidecarenone (Co Q-10) 200 Mg Capsule 200 MG PO DAILY for 30 Days, #30 CAP Prov: INDER OSPINA MD 11/18/22 GEORGIA WILLOUGHBY MD Nov 18, 2022 08:07
[2022-11-18 08:12] LABS: HEMOGLOBIN 11.9 g/dL (11.5-16.0)
[2022-11-18 08:13] LABS: ALBUMIN 4.1 GM/DL (3.2-4.5); POTASSIUM 4.1 MMOL/L (3.6-5.0)
[2022-11-18 08:14] LABS: BASOPHILS % (AUTO) 0 % (0-10); EOSINOPHILS # (AUTO) 0.1 10^3/uL (0.0-0.3); EOSINOPHILS % (AUTO) 2 % (0-10); HEMATOCRIT 38 % (35-52); LYMPHOCYTES # (AUTO) 0.8 10^3/uL (1.0-4.0); LYMPHOCYTES % (AUTO) 12 % (12-44); MEAN CORPUSCULAR HEMOGLOBIN 29 pg (25-34); MEAN CORPUSCULAR HGB CONC 32 g/dL (32-36); MEAN CORPUSCULAR VOLUME 92 fL (80-99); MEAN PLATELET VOLUME 11.7 fL (9.0-12.2); MONOCYTES # (AUTO) 0.5 10^3/uL (0.0-1.0); MONOCYTES % (AUTO) 8 % (0-12); NEUTROPHILS # (AUTO) 5.4 10^3/uL (1.8-7.8); NEUTROPHILS % (AUTO) 78 % (42-75); PLATELET COUNT 127 10^3/uL (130-400); WHITE BLOOD COUNT 6.9 10^3/uL (4.3-11.0)
[2022-11-18 08:15] LABS: CALCIUM 9.5 MG/DL (8.5-10.1); SMEAR SCAN COMMENT YES
[2022-11-18 08:16] LABS: INR 4.8 (0.8-1.4); TOTAL PROTEIN 7.8 GM/DL (6.4-8.2)
[2022-11-18 08:18] LABS: BILIRUBIN,TOTAL 0.9 MG/DL (0.1-1.0)
[2022-11-18 08:19] LABS: CREATININE SERUM 1.54 MG/DL (0.60-1.30)
--- NOTE | 2022-11-18 08:22 | Diagnostic Imaging Report ---
INDICATION: Shortness of breath; bloody stools TECHNIQUE: Single view chest 8:22 AM CORRELATION STUDY: 07/20/2022 FINDINGS: Postoperative sternotomy and coronary bypass. Heart size enlarged. Mediastinum and vasculature within normal. The lungs are clear with no consolidating infiltrate. There is no significant effusion or pneumothorax. IMPRESSION: 1. Negative appearing single view chest. Dictated by: Dictated on workstation # [id number]
[2022-11-18 08:51] LABS: CLARITY,URINE CLEAR; COLOR,URINE YELLOW
[2022-11-18 08:52] LABS: BACTERIA,URINE TRACE /HPF; BILIRUBIN,URINE NEGATIVE (NEGATIVE); GLUCOSE, URINE (UA) NEGATIVE (NEGATIVE); KETONES,URINE NEGATIVE (NEGATIVE); LEUKOCYTE ESTERASE ,URINE 1+ (NEGATIVE); NITRITE,URINE NEGATIVE (NEGATIVE); PROTEIN,URINE 2+ (NEGATIVE); RBC,URINE RARE /HPF
[2022-11-18] MEDS ORDERED: FUROSEMIDE INJECTION 40 MG/4 ML VIAL IVP ONE (11:00)
[2022-11-18 12:40] VITALS: BP 161/75
[2022-11-18] MEDS: ACETAMINOPHEN 500 MG TABLET PO PRN ×2 (13:53→21:42)
[2022-11-18 14:35] VITALS: BP 161/75
[2022-11-18] MEDS ORDERED: FURO20TA4 PO (14:43)
[2022-11-18] MEDS ORDERED: RT-Ipratropium/Albuterol NEB 3 ML VIAL INH PRN (14:45)
[2022-11-18] MEDS ORDERED: UBID200C16 PO (15:34)
[2022-11-18] MEDS ORDERED: PATIENT MAY USE OWN MEDS, ALL MC SCH (15:45)
[2022-11-18 16:07] VITALS: BP 144/65
[2022-11-18] MEDS ORDERED: FLU HIGH DOSE (65+ YOA) 240 MCG/0.7 ML 2023-24 (FLUZONE) IM ONE (17:00)
[2022-11-18] MEDS: POTASSIUM CITRATE 15 MEQ PO SCH (17:35)
[2022-11-18] MEDS ORDERED: RIVAROXABAN 15 MG TABLET PO SCH (18:00)
[2022-11-18 19:57] VITALS: BP 133/63
[2022-11-18] MEDS ORDERED: meTOprolol TARTRATE (IR) 50 MG TABLET PO SCH (21:00)
[2022-11-18] MEDS ORDERED: ALLOPURINOL 300 MG TABLET PO SCH (21:00)
[2022-11-18 23:04] VITALS: BP 123/57
[2022-11-19 03:18] VITALS: BP 126/61
[2022-11-19 06:07] LABS: BASOPHILS % (AUTO) 1 % (0-10); EOSINOPHILS # (AUTO) 0.1 10^3/uL (0.0-0.3); EOSINOPHILS % (AUTO) 3 % (0-10); HEMATOCRIT 33 % (35-52); HEMOGLOBIN 10.3 g/dL (11.5-16.0); LYMPHOCYTES # (AUTO) 1.1 10^3/uL (1.0-4.0); LYMPHOCYTES % (AUTO) 24 % (12-44); MEAN CORPUSCULAR HEMOGLOBIN 29 pg (25-34); MEAN CORPUSCULAR HGB CONC 32 g/dL (32-36); MEAN CORPUSCULAR VOLUME 91 fL (80-99); MEAN PLATELET VOLUME 11.8 fL (9.0-12.2); MONOCYTES # (AUTO) 0.5 10^3/uL (0.0-1.0); MONOCYTES % (AUTO) 10 % (0-12); NEUTROPHILS # (AUTO) 2.7 10^3/uL (1.8-7.8); NEUTROPHILS % (AUTO) 62 % (42-75); PLATELET COUNT 124 10^3/uL (130-400); WHITE BLOOD COUNT 4.4 10^3/uL (4.3-11.0)
[2022-11-19 06:21] LABS: POTASSIUM 3.7 MMOL/L (3.6-5.0)
[2022-11-19 06:22] LABS: CALCIUM 8.8 MG/DL (8.5-10.1)
[2022-11-19 06:26] LABS: CREATININE SERUM 1.26 MG/DL (0.60-1.30)
[2022-11-19] MEDS ORDERED: LEVOTHYROXINE 100 MCG TABLET PO SCH (06:30)
[2022-11-19] MEDS ORDERED: FUROSEMIDE 20 MG TABLET PO PRN (07:00)
[2022-11-19] MEDS ORDERED: FUROSEMIDE INJECTION 40 MG/4 ML VIAL IV SCH (07:00)
[2022-11-19 07:28] VITALS: BP 130/60
[2022-11-19] MEDS: POTASSIUM CITRATE 15 MEQ PO SCH (08:07)
[2022-11-19] MEDS ORDERED: NON-FORMULARY MEDICATION 1 EA EA (Lisinopril/Hydrochlorothiazide (Lisinopril-Hctz 20-25 mg PO SCH (09:00)
[2022-11-19 11:24] VITALS: BP 177/75
--- NOTE | 2022-11-19 13:43 | History & Physical-Hospitalist ---
History of Present Illness HPI/Chief Complaint Patient is a 67-year-old female who presents to the emergency department with a chief complaint of shortness of breath with even minimal exertion, bloody stools over the last 2 to 3 days and some nausea this morning. She had an ablation for A-fib earlier in the year and ever since has been short of breath but it has g geoffrey significantly worse in the last week especially the last 24 hours. She denies chest pain. She had no known fever until this morning. Is not currently nauseated but was earlier. Has not vomited. She states the bloody stools have progressed in severity over the last few days "straight blood" last night. No abdominal cramping. She has had previous colonoscopy in 2006 or 2007 and then again in 2012. She tells me she has known history of internal hemorrhoids. She is chronically anticoagulated still on Xarelto even after her ablation. History of coronary artery disease status post 2 vessel bypass in 1997. She wears CPAP at night. Does not require the use of home oxygen. Her room air sats were 85% on arrival. No productive cough. No sore throat or runny nose. No difficulties with urination. Upon my arrival the patient denied any issues with heart racing which is feeling short of breath had no cough or sensation of chest congestion. No past history of thromboembolic disease. As a recall she had less than a 70-skmd-lmxy smoking history and quit a number of years ago. Prior to cardioversion a year ago she underwent trans esophageal echo that did reveal mild left atrial and severe right sided cardiac chamber dimension dilatation. She underwent ablation in March as I recall and has not had symptomatic recurrence of atrial fibrillation since. She denied lower extremity edema does have a history of obstructive sleep apnea for which she is compliant with CPAP therapy. She reports on her sleep study they told her that she did have significant hypoxemia a little over a year ago. She follows with Dr. Rothman's office. She reports a past history of colonoscopy that was done by Dr. Banegas's that this is over 10 years ago she does not recall any problems polyps or other abnormality at that time and denies any family history for colon cancer. Date Seen 11/18/22 Time Seen by a Provider: 11:30 Attending Physician Servando Peterson MD PCP Admitting Physician: Inder Ospina MD Attending Physician: Inder Ospina MD Referring Physician Date of Admission Nov 18, 2022 at 12:19 Home Medications & Allergies Home Medications Reviewed patient Home Medication Reconciliation performed by pharmacy medication reconciliations vehicle modification technician and/or nursing. Patients Allergies have been reviewed. Allergies Allergies Coded Allergies codeine (Unverified Allergy, Unknown, 06/18/15) morphine (Unverified Allergy, Unknown, 06/18/15) Past Pwsqolp-Yvubox-Pwgygs Hx Patient Social History Tobacco Use?: No Smoking Status: Former Smoker Use of E-Cig and/or Vaping dev: No Substance use?: No Alcohol Use?: No Pt feels they are or have been: No Immunizations Up To Date Date of Influenza Vaccine: Nov 24, 2016 First/Initial COVID19 Vaccinat: YES Second COVID19 Vaccination Saravanan: YES Date of Pneumonia Vaccine: Nov 24, 2016 Current Status status: No status: No Advance Directives: No Communicates: Verbally Primary Language: Central African Preferred Spoken Language: [place] Is interpretation needed?: No Implanted or Applied Medical D: Stents Past Medical History Surgeries: Bladder Surgery, CABG, Gallbladder, Hysterectomy, Orthopedic Sleep Apnea Currently Using CPAP: Yes Atrial Fibrillation, Coronary Artery Disease, Hypertension HIV/AIDS: No Kidney Stones Gastroesophageal Reflux Arthritis Loss of Vision: Bilateral Hearing Impairment: Denies Family Medical History Patient reports no known family medical history. Review of Systems Constitutional: see HPI Physical Exam Physical Exam Vital Signs Vital Signs - First Documented 11/18/22 07:22 Temp 37.3 Pulse 78 Resp 18 B/P (MAP) 161/72 (101) Pulse Ox 96 O2 Delivery Nasal Cannula Capillary Refill : Less Than 3 Seconds Height, Weight, BMI Height: 5'4.00" Weight: 202lbs. 0.0oz. 91.544656lp; 36.32 BMI Method: General Appearance: No Apparent Distress Respiratory: Chest Non Tender, Lungs Clear, Normal Breath Sounds, No Accessory Muscle Use, No Respiratory Distress Cardiovascular: Regular Rate, Rhythm, No Edema, No Gallop, No JVD, Normal Peripheral Pulses, Other (Soft 1/6 to 2/6 systolic ejection murmur heard at the left lower sternal border. P2 more prominent did not appreciate paradoxical splitting.) Gastrointestinal: Normal Bowel Sounds, No Organomegaly, No Pulsatile Mass, Non Tender, Soft Extremity: Normal Capillary Refill, Normal Inspection, Normal Range of Motion, Non Tender, No Calf Tenderness, No Pedal Edema Results Results/Procedures Labs Laboratory Tests 11/18/22 07:30 11/19/22 05:45 Patient resulted labs reviewed. Assessment/Plan Admission Diagnosis 1. Hypoxemia likely due to pulmonary hypertension possibly on the basis of severe obstructive sleep apnea and/or COPD. Will obtain pulmonary function studies with lung volumes and DLCO likely as an outpatient and initiate oxygen therapy. 2. History of atrial fibrillation she has not had symptomatic recurrence since ablation earlier this year. Due to GI bleed for now we will hold Xarelto. We will continue beta-pura therapy and other home medication. 3. Mild anemia likely due to lower GI bleed no evidence appears to be smaller volume will likely need to be set up for outpatient colonoscopy continue to monitor. 4. 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 Admission Status: Inpatient Order (span 2 midnights) Reason for Inpatient Admission: See admission diagnosis Copy Copies To 2: INDER OSPINA MD, MARK D MD Nov 19, 2022 13:43
--- NOTE | 2022-11-19 13:55 | Discharge Summary ---
Diagnosis/Chief Complaint Date of Admission Nov 18, 2022 at 12:19 Date of Discharge Discharge Date: Nov 19, 2022 Discharge Time: 13:50 Admission Diagnosis 1. Hypoxemia likely due to pulmonary hypertension possibly on the basis of severe obstructive sleep apnea and/or COPD. Will obtain pulmonary function studies with lung volumes and DLCO likely as an outpatient and initiate oxygen therapy. 2. History of atrial fibrillation she has not had symptomatic recurrence since ablation earlier this year. Due to GI bleed for now we will hold Xarelto. We will continue beta-pura therapy and other home medication. 3. Mild anemia likely due to lower GI bleed no evidence appears to be smaller volume will likely need to be set up for outpatient colonoscopy continue to monitor. 4. 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 Primary Care Marcelle Monroe Discharge Summary Discharge Physical Exam Allergies: Coded Allergies: codeine (Unverified Allergy, Unknown, 06/18/15) morphine (Unverified Allergy, Unknown, 06/18/15) Vitals & I&Os Vital Signs Date Time Temp Pulse Resp B/P (MAP) Pulse Ox O2 Delivery O2 Flow Rate FiO2 11/19/22 12:22 69 11/19/22 11:24 36.8 18 177/75 (109) 97 Room Air 11/19/22 08:00 2.00 General Appearance: No Apparent Distress Respiratory: Chest Non Tender, Lungs Clear, Normal Breath Sounds, No Accessory Muscle Use, No Respiratory Distress Cardiovascular: Regular Rate, Rhythm, No Edema, No Gallop, No JVD, Normal Peripheral Pulses, Other ( 1/6 to 2/6 systolic ejection murmur heard best at the left lower sternal border without S3 or S4) Gastrointestinal: Normal Bowel Sounds, No Organomegaly, No Pulsatile Mass, Non Tender, Soft Extremity: Normal Capillary Refill, Normal Inspection, Normal Range of Motion, Non Tender, No Calf Tenderness, No Pedal Edema Hospital Course Was the Problem List Reviewed?: Yes Patient is a 67-year-old female who presents to the emergency department with a chief complaint of shortness of breath with even minimal exertion, bloody stools over the last 2 to 3 days and some nausea this morning. She had an ablation for A-fib earlier in the year and ever since has been short of breath but it has gotten significantly worse in the last week especially the last 24 hours. She denies chest pain. She had no known fever until this morning. Is not currently nauseated but was earlier. Has not vomited. She states the bloody stools have progressed in severity over the last few days "straight blood" last night. No abdominal cramping. She has had previous colonoscopy in 2006 or 2007 and then again in 2012. She tells me she has known history of internal hemorrhoids. She is chronically anticoagulated still on Xarelto even after her ablation. History of coronary artery disease status post 2 vessel bypass in 1997. She wears CPAP at night. Does not require the use of home oxygen. Her room air sats were 85% on arrival. No productive cough. No sore throat or runny nose. No difficulties with urination. Upon my arrival the patient denied any issues with heart racing which is feeling short of breath had no cough or sensation of chest congestion. No past history of thromboembolic disease. As a recall she had less than a 62-vili-vojr smoking history and quit a number of years ago. Prior to cardioversion a year ago she underwent trans esophageal echo that did reveal mild left atrial and severe right sided cardiac chamber dimension dilatation. She underwent ablation in [facility] as I recall and has not had symptomatic recurrence of atrial fibrillation since. She denied lower extremity edema does have a history of obstructive sleep apnea for which she is compliant with CPAP therapy. She reports on her sleep study they told her that she did have significant hypoxemia a little over a year ago. She follows with Dr. Rothman's office. She reports a past history of colonoscopy that was done by Dr. Banegas's that this is over 10 years ago she does not recall any problems polyps or other abnormality at that time and denies any family history for colon cancer.Off Xarelto the patient rectal bleeding stopped with a discharge hemoglobin of 10.3 compared to admission of 11.9 with stable vital signs. Due to hypoxemia and a previous transesophageal echo revealing severe right-sided cardiac chamber dilatation and mild left atrial dilatation with reportedly normal LV function and no evidence for patent foramen ovale with severe tricuspid insufficiency transthoracic echo was obtained but pending at the time of this discharge. She did qualify for oxygen with a saturation that dropped to 86% walking with RT. Patient's resting saturations improved around 90% without overt evidence to suggest decompensated heart failure. While her BNP was elevated she has mild renal insufficiency with a GFR of around 50 and likely has significant pulmonary hypertension. She will cont inue beta-pura therapy in the form of metoprolol 100 mg twice daily as I recall she is on lisinopril or one of the other MCKAY inhibitors as well as furosemide 40 mg. I will have her follow-up with me within 1 week and we will obtain pulmonary function studies as an outpatient with likely pulmonary referral to follow. She may be a candidate for pulmonary hypertension clinic. She will continue 2 L of O2 continuous her only medication change. Labs (last 24 hrs) Laboratory Tests 11/19/22 05:45: White Blood Count 4.4, Red Blood Count 3.59L, Hemoglobin 10.3L, Hematocrit 33L, Mean Corpuscular Volume 91, Mean Corpuscular Hemoglobin 29, Mean Corpuscular Hemoglobin Concent 32, Red Cell Distribution Width 16.7H, Platelet Count 124L, Mean Platelet Volume 11.8, Immature Granulocyte % (Auto) 0, Neutrophils (%) (Auto) 62, Lymphocytes (%) (Auto) 24, Monocytes (%) (Auto) 10, Eosinophils (%) (Auto) 3, Basophils (%) (Auto) 1, Neutrophils # (Auto) 2.7, Lymphocytes # (Auto) 1.1, Monocytes # (Auto) 0.5, Eosinophils # (Auto) 0.1, Basophils # (Auto) 0.0, Immature Granulocyte # (Auto) 0.0, Sodium Level 139, Potassium Level 3.7, Chloride Level 106, Carbon Dioxide Level 20L, Anion Gap 13, Blood Urea Nitrogen 28H, Creatinine 1.26, Estimat Glomerular Filtration Rate 47, BUN/Creatinine Ratio 22, Glucose Level 90, Calcium Level 8.8 Microbiology 11/18/22 Urine Culture - Preliminary, Resulted Strep, Beta Hemolytic Group B Gram Pos Mixed Bacterial Annabelle Patient resulted labs reviewed. Discussion & Recommendations Discharge Planning: >30 minutes discharge planning Discharge Home Medications: Active Scripts Active Co Q-10 (Ubidecarenone) 200 Mg Capsule 200 Mg PO DAILY 30 Days Reported Furosemide 20 Mg Tablet 20 Mg PO PRN Weight patient daily; pt to take medication for 2+ lb weight gain Rosuvastatin Calcium 10 Mg Tablet 10 Mg PO Q48H Preservision Areds 2 Softgel (Vit C/E/Zn/Coppr/Lutein/Zeaxan) 250MG-90MG Capsule 1 Each PO DAILY Potassium Chloride 15 Meq Tab.er.prt 15 Meq PO BID Montelukast Sodium 10 Mg Tablet 10 Mg PO HS Metoprolol Tartrate 100 Mg Tablet 100 Mg PO BID Magnesium (Magnesium Oxide) 400 Mg Magnesium Tablet 400 Mg PO BID Lisinopril-Hctz 20-25 mg Tab (Lisinopril/Hydrochlorothiazide) 20 Mg-25 Mg Tablet 1 Each PO DAILY Levothyroxine (Levothyroxine Sodium) 100 Mcg Capsule 100 Mcg PO DAILY Fish Oil 1,000 mg Softgel (Menan-3/Dha/Epa/Fish Oil) 1,000 Mg (120 Mg-180 Mg) Capsule 1,000 Mg PO HS Allopurinol 300 Mg Tablet 300 Mg PO HS Instructions to patient/family Please see electronic discharge instructions given to patient. INDER CAI MD Nov 19, 2022 13:55
[2022-11-19] MEDS ORDERED: ROSUVASTATIN 10 MG TABLET PO SCH (21:00)
== END 2022-11-19 13:31 | disposition home or self-care (01) ==
LOC: EDUNIT# 07:13 → ER 07:15 → UNDOADMOB 12:19 → 4TH 12:19 → UNDODISOB 11-19 13:31
PROVIDERS: ADMIT Internal Medicine; ATTEND Internal Medicine
DX: R09.02 Hypoxemia (principal); I27.20 Pulmonary hypertension, unspecified; G47.33 Obstructive sleep apnea (adult) (pediatric); J44.9 Chronic obstructive pulmonary disease, unspecified; I48.91 Unspecified atrial fibrillation; D64.9 Anemia, unspecified; K92.2 Gastrointestinal hemorrhage, unspecified; E03.9 Hypothyroidism, unspecified; N17.9 Acute kidney failure, unspecified; Z87.891 Personal history of nicotine dependence; Z79.01 Long term (current) use of anticoagulants; Z79.899 Other long term (current) drug therapy; Z79.890 Hormone replacement therapy
CPT/HCPCS: 71045; 80048; 80053; 81000; 82728; 83540; 83550; 83605; 83880; 84443; 85025 ×2; 85610; 85730; 87040; 87077; 87088; 87186; 87636; 94761; 99284; C8929; G0008; G0378; 36415; 90471; 90662; 93306

== ENCOUNTER → 2022-11-24 | Outpatient (CLI) | payer MEDICARE, OTHER ==
[~2022-11-24] MED LIST changes: +FURO20TA4 PO; +UBID200C16 PO
--- NOTE | 2022-11-24 15:16 | Diagnostic Imaging Report ---
PROCEDURE: US Renal Bilateral. TECHNIQUE: Multiple Real-time grayscale images were obtained over the kidneys in various projections bilaterally. INDICATION: Chronic kidney disease. COMPARISON: None available. FINDINGS: The right kidney measures 9 cm in length. The left kidney measures 10 cm in length. Both kidneys maintain normal cortical thickness and echogenicity. No hydronephrosis, solid mass, or complex cyst on either kidney. There are small exophytic cysts involving both kidneys with the largest on the left measuring up to 3.9 cm. The urinary bladder has a prevoid volume of 99 mL. Post void bladder volume is 29 mL. Both ureteral jets are identified. IMPRESSION: 1. No renal atrophy or hydronephrosis. 2. Bilateral simple renal cysts do not require dedicated followup imaging. Dictated by: Dictated on workstation # [id number]
== END ==
LOC: RAD 09:02
PROVIDERS: ATTEND Internal Medicine Nephrology
DX: I12.9 Hypertensive chronic kidney disease with stage 1 through stage 4 chronic kidney disease, or unspecified chronic kidney disease (principal); N18.32 Chronic kidney disease, stage 3b; N39.0 Urinary tract infection, site not specified
CPT/HCPCS: 76770

== ENCOUNTER 2022-11-29 06:21 | Outpatient (CLI) | payer MEDICARE, OTHER ==
[~2022-11-29] VITALS: Ht 160.2 cm; Wt 92.2 kg
[2022-11-29] MEDS ORDERED: LACTATED RINGERS 1,000 ML 1,000 ML IV STA (12:13)
== END 2022-11-29 12:15 | disposition home or self-care (01) ==
LOC: PREOP 06:21
PROVIDERS: ATTEND Internal Medicine
DX: Z01.818 Encounter for other preprocedural examination (principal)

== ENCOUNTER 2022-12-01 08:25 | Day surgery (SDC) | payer MEDICARE, OTHER ==
--- NOTE | 2022-11-28 08:31 | HISTORY AND PHYSICAL ---
DATE OF SERVICE: 12/01/2022 COLONOSCOPY HISTORY AND PHYSICAL HISTORY OF PRESENT ILLNESS: The patient is a 67-year-old white female seen for initial patient evaluation on 11/27/2022. She was admitted to the hospital on the with rectal bleeding. She was noted to be hypoxic and had rather extensive past medical history. She has had longstanding sleep apnea, history of coronary artery disease, status post bypass surgery in the late . She had a heart catheterization per Dr. Villalobos this summer that revealed bypass grafts were intact with normal LV function. She had an echocardiogram done a year ago that revealed severe pulmonary hypertension with no evidence for past history of known pulmonary embolism. Her PA pressure was estimated around 80 mmHg with echo findings compatible with chronic pulmonary hypertension at that time with significant dilatation in right heart chambers and ejection fraction 70%. She did not have evidence for reported intracardiac shunting at that time on transesophageal echo done prior to cardioversion for atrial fibrillation. That was initially successful, but she recurred and then underwent ablation in June, has reportedly been in sinus rhythm since, but has been on chronic anticoagulant therapy. Over the past month, she has noticed intermittent breath. Denies bright red blood per rectum. High volume per her report at times. On 20 mg of Xarelto daily and has been held since her hospital stay and she has had resolution of bleeding. She had one or two other colonoscopies done, last one from Dr. Banegas in 2006 that was reportedly normal. She presented with a hemoglobin of 11.9, a slightly low platelet count of 127 with discharge hemoglobin of 10.3 with no further bleeding of Xarelto and a platelet count of 124,000. Her admission creatinine was 1.54 at discharge, the next day was 1.26. She was noted to be hypoxic with exertion with repeat echo revealing an estimated PA pressure of 35-40 mmHg. Chronic dilatation in the right atrium and right ventricle with an ejection fraction of 70%, evidence for diastolic dysfunction and small PFO, measuring 0.76 mm in diameter. She has had no subsequent bleeding. Notes that her oxygen level, which she monitors at home has been normal at rest but still does drop a little below 90 with some dyspnea on exertion. SOCIAL HISTORY: Pertinent for a 27-qpbo-mqoj smoking history, but she quit 20 years ago. PAST SURGICAL HISTORY: Other than her bypasses, pertinent for a total abdominal hysterectomy in 1990, bypass surgery was in 1997, had a cholecystectomy in 1979, a in 1984, bladder pin up in 2007, lithotripsy x2 for nephrolithiasis in 2015 and bilateral cataract extraction in 2021. MEDICATIONS: On admission include allopurinol 300 mg daily, lisinopril/HCT 20/25, metoprolol 100 mg b.i.d., Urocit K 15 mEq daily, rosuvastatin 10 mg daily, montelukast 10 mg daily, Xarelto 20 mg daily which is on hold, fish oil 1 daily, L-thyroxine 100 mcg daily, Lasix 20 mg that she takes on an as needed basis for swelling, PreserVision vitamin 1 daily, magnesium oxide 400 mg daily and CoQ10 200 mg daily. PHYSICAL EXAMINATION: GENERAL: Reveals a pleasant white female, appeared to be in no acute distress. VITAL SIGNS: Resting oxygen level 95%, heart rate 62 and regular, blood pressure 128/54, 5 feet 3 inches tall, 203 pounds with a BMI of 36. HEENT: Unremarkable. NECK: Revealed no JVD, adenopathy or bruits. CHEST: Clear to auscultation. CARDIOVASCULAR: Reveals regular rate and rhythm. Soft left lower sternal border, low-pitched murmur, increased P2. Really did not appreciate any issues with paradoxical split. No S3 or S4 appreciated. ABDOMEN: Soft, supple without mass, organomegaly, or tenderness, although obesity, diminished sensitivity. EXTREMITIES: Revealed no cyanosis, clubbing or edema. ASSESSMENT: 1. For anemia and rectal bleeding, the patient is being set up for diagnostic colonoscopy. We will have her continue to hold Xarelto, likely switch to Eliquis to potentially reduce bleeding risk after colonoscopy. 2. Pulmonary hypertension, likely the cause of her underlying atrial fibrillation. Formal PFTs have not been done. We are in the process of getting her set up for PFTs with DLCO and lung volumes with further recommendations and consideration for referral to the pulmonary hypertension clinic. 3. Obstructive sleep apnea for which the patient has been compliant with CPAP and reports that her AHI index on therapy as well under 5 and usually around 1 or 2 as measured by the machine. With regards to vaccination status, COVID vaccination, recommended the patient received influenza vaccination in hospital. We will need to question her about Shingrix vaccination on return. She is up to see me in 1 month. Job ID: [id number] DocumentID: [id number] Dictated Date: 11/27/2022 15:42:36 Human Resource Assistant Date: 11/27/2022 16:18:00 Dictated By: INDER CAI MD MTDD
[~2022-12-01] VITALS: Ht 160.2 cm; Wt 92.2 kg
[~2022-12-01 08:25] MED LIST changes: +LACTATED RINGERS 1,000 ML 1,000 ML IV STA
[2022-12-01 08:47] VITALS: BP 120/50
--- NOTE | 2022-12-01 08:51 | Pre-Op Note & Conscious Sedat ---
Pre-Operative Progress Note Date H&P Reviewed: Dec 01, 2022 Time H&P Reviewed: 08:50 History & Physical: H&P Reviewed, Patient Examed, No changes noted Pre-Op Diagnosis: rectal bleeding fe deficiency anemia Moderate Sedation PreProcedure ASA Score 3 Airway Lungs Heart ASA score ASA 1: a normal healthy patient ASA 2: a patient with a mild systemic disease (mid diabetes, controlled hypertension, obesity ASA 3: a patient with a severe systemic disease that limits activity (angina, COPD, prior Myocardial infarction) ASA 4: a patient with an incapacitating disease that is a constant threat to life (CHF, renal failure) ASA 5: a moribund patient not expected to survive 24 hrs. (ruptured aneurysm) ASA 6: a declared brain- patient whose organs are being harvested. For emergent operations, add the letter E after the classification Mallampati Classification Grade 3 Sedation Plan Analgesia, Amnesia, Plan communicated to team members, Discussed options with patient/fam, Discussed risks with patient/fam The patient is an appropriate candidate to undergo the planned procedure, sedation, and anesthesia. The patient immediately re-assessed prior to indication. INDER CAI MD Dec 01, 2022 08:51
[2022-12-01 10:00] VITALS: BP 92/53
--- NOTE | 2022-12-01 10:04 | Progress Note-Post Operative ---
Post-Procedure Note Physician (s)/Transit Worker (s) Physician INDER CAI MD Pre-Procedure Diagnosis Pre-Procedure Diagnosis: rectal bleeding fe deficiency anemia Post-Procedure Diagnosis Post-operative diagnosis: Prior to undergoing colonoscopy digital rectal evaluation was performed. Anal sphincter tone was normal and the perianal reflexes intact. No abnormalities noted on digital inspection anal canal or distal rectal vault. The colonoscope was then inserted into the rectum and under direct visualization advanced to the cecum. The cecum was identified by the indication of the ileocecal valve and cecal strap. Photographic documentation obtained. Careful inspection was made as the colonoscope withdrawn. Quality the prep was good. Findings there are no evidence for internal or external hemorrhoids and the rectum was unremarkable. Present at the rectosigmoid junction was a 5 mm sessile hyperplastic appearing polyp was biopsied and ablated with no subsequent blood loss. Present in the distal sigmoid colon was a 1.5 cm pedunculated nonulcerated polyp. It was snared and removed in its entirety submitted for histopathology with no blood loss. Mild diverticular disease confined to the sigmoid colon was present without evidence of diverticulitis. The descending colon splenic flexure transverse colon hepatic flexure ascending colon and cecum were unremarkable. A/P 1. A 1.5 cm nonulcerated pedunculated polyp was removed via snare in its entirety from the distal sigmoid colon we will await histopathology report before advocating consideration for future surveillance colonoscopy. Mild diverticular disease confined sigmoid colon was present as well as a diminutive polyp in the rectosigmoid junction with hyperplastic features. This polyp was cauterized via hot forceps and submitted for histopathology as well. INDER CAI MD Dec 01, 2022 10:04
[2022-12-01 10:05] VITALS: BP 91/51
[2022-12-01 10:10] VITALS: BP 100/60
--- NOTE | 2022-12-01 10:13 | Anesthesia-General Post-Op ---
MAC Patient Condition Mental Status/LOC: Same as Preop Cardiovascular: Satisfactory Nausea/Vomiting: Absent Respiratory: Satisfactory Pain: Controlled Complications: Absent Post Op Complications Complications None Follow Up Care/Instructions Patient Instructions None needed. Anesthesiology Discharge Order Discharge Order Patient is doing well, no complaints, stable vital signs, no apparent adverse anesthesia problems. No complications reported per nursing. LULI GRAY CRNA Dec 01, 2022 10:13
[2022-12-01 10:49] VITALS: BP 100/60
== END 2022-12-01 10:48 | disposition home or self-care (01) ==
LOC: ENDO 08:25
PROVIDERS: ATTEND Internal Medicine
DX: D12.5 Benign neoplasm of sigmoid colon (principal); K63.5 Polyp of colon; K62.1 Rectal polyp; K57.30 Diverticulosis of large intestine without perforation or abscess without bleeding; I27.20 Pulmonary hypertension, unspecified; G47.33 Obstructive sleep apnea (adult) (pediatric); Z95.1 Presence of aortocoronary bypass graft
CPT/HCPCS: 88305

== ENCOUNTER → 2022-12-05 | Outpatient (CLI) | payer MEDICARE, OTHER ==
[~2022-12-05] MED LIST changes: -LACTATED RINGERS 1,000 ML 1,000 ML IV STA; +RT-ALBUTEROL SULF 2.5 MG/3 ML PRE-MIX VIAL INH ONE
== END ==
LOC: RT 10:09
PROVIDERS: ATTEND Internal Medicine
DX: I27.9 Pulmonary heart disease, unspecified (principal)
CPT/HCPCS: 94060; 94726; 94729

== ENCOUNTER → 2023-01-17 | Outpatient (CLI) | payer MEDICARE, OTHER ==
[~2023-01-17] MED LIST changes: -RT-ALBUTEROL SULF 2.5 MG/3 ML PRE-MIX VIAL INH ONE
--- NOTE | 2023-01-18 08:49 | Diagnostic Imaging Report ---
INDICATION: Abnormal screening mammogram. Study performed for further evaluation. Correlation is made with the outside screening mammogram from 01/01/2023. Sonographic interrogation inner left breast demonstrates a hypoechoic solid appearing somewhat lobulated nodule at the 9 o'clock location, 12 to 13 cm from the nipple. This measures approximately 7 x 6 x 7 mm. This likely accounts for the mammographic density. No definite internal vascularity is seen. There is some vascularity along the margins. A second somewhat ovoid hypoechoic nodule 7 o'clock location left breast is noted, 4 to 5 cm from the nipple measuring 4 mm x 2 mm x 6 mm. This does have somewhat echogenic [place] and may represent a lymph node. No other masses are seen. IMPRESSION: Hypoechoic solid nodule 9 o'clock location left breast, 12 to 13 cm from the nipple, likely accounting for the mammographic density. Small breast neoplasm cannot be excluded and tissue sampling would be recommended. This would be amenable to ultrasound-guided core biopsy. ACR BI-RADS Category 4: Suspicious abnormality. Result letter will be mailed to the patient. Note: At least 10% of breast cancer is not imaged by mammography. BI-RADS 4 Dictated by: Dictated on workstation # [id number]
== END ==
LOC: RAD 13:42
PROVIDERS: ATTEND Internal Medicine
DX: N63.25 Unspecified lump in the left breast, overlapping quadrants (principal)